=== PATIENT | male | born 1990 | race Hispanic/Latino ===

== ENCOUNTER 2018-01-02 17:07 | Emergency (ER) | payer BC ==
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
--- NOTE | 2018-01-02 18:07 | RAD REPORT ---
EXAM DESCRIPTION: RAD - Lumbar Spine 3 Views - 01/02/2018 5:59 pm CLINICAL HISTORY: LOWER BACK PAIN Radiculopathy COMPARISON: None FINDINGS: Vertebral body heights appear maintained. No compression fracture noted. Mild lower lumbar spondylosis. No spondylolysis or spondylolisthesis. Appendectomy clips. IMPRESSION: Mild lower lumbar spondylosis. No acute finding evident.
[2018-01-02 18:43] VITALS: BP 153/81; TEMP 98.9; O2SAT 97
== END 2018-01-02 18:37 | disposition home or self-care (01) ==
LOC: ER 17:07
DX: S39.012A Strain of muscle, fascia and tendon of lower back, initial encounter (principal); V89.2XXA Person injured in unspecified motor-vehicle accident, traffic, initial encounter; J45.909 Unspecified asthma, uncomplicated
CPT/HCPCS: 72100; 99283

== ENCOUNTER 2019-04-21 04:04 | Emergency (ER) | payer BC ==
[2019-04-21] MEDS ORDERED: METHYLPREDNISOLONE 125 MG INJ ONE (04:31)
[2019-04-21] MEDS ORDERED: LEVALBUTEROL 1.25 MG/3 ML NEB ONE (04:32)
--- NOTE | 2019-04-21 04:58 | ER ---
Nurse's Notes [facility] Name: Theodore Simmons Age: 29 yrs Sex: Male : 1990 Arrival Date: 04/21/2019 Time: 04:06 Bed 5 Private MD: Diagnosis: Asthmatic bronchitis Presentation: 04/21 04:15 Presenting complaint: Patient states: Report cough and congestion since yesterday, ea reports symptoms worsened tonight. Reports productive cough with clear sputum. Pt states he took his ProAir 30 min prior to arrival. Transition of care: patient was not received from another setting of care. Onset of symptoms was April 21, 2019. Risk Assessment: Do you want to hurt yourself or someone else? Patient reports no desire to harm self or others. Initial Sepsis Screen: Does the patient meet any 2 criteria? RR > 20 per min. HR > 90 bpm. Does the patient have a suspected source of infection? No. Patient's initial sepsis screen is negative. Care prior to arrival: None. 04:15 Method Of Arrival: Ambulatory ea 04:15 Acuity: JOE 4 ea Triage Assessment: 04:21 General: Appears uncomfortable, Behavior is appropriate for age. Respiratory: Reports ea shortness of breath Onset: The symptoms/episode began/occurred yesterday, the patient reports symptoms have resolved. Historical: - Allergies: 04:18 No Known Allergies; ea - Home Meds: 04:18 Albuterol Inhl [Active]; ea - PMHx: 04:18 Asthma; ea - PSHx: 04:18 Hernia repair; ea - Immunization history:: Adult Immunizations unknown. - Social history:: Smoking status: Patient/guardian denies using tobacco. - Ebola Screening: : No symptoms or risks identified at this time. Screenin:17 Abuse screen: Denies threats or abuse. Nutritional screening: No deficits noted. ea Tuberculosis screening: No symptoms or risk factors identified. Fall Risk None identified. Assessment: 04:22 General: Appears uncomfortable, Behavior is appropriate for age. Pain: Denies pain. ea Neuro: Level of Consciousness is awake, alert, obeys commands, Oriented to person, place, time, situation. Cardiovascular: Patient's skin is warm and dry. Respiratory: Airway. Respiratory: Airway is patent Respiratory effort is even, unlabored, Respiratory pattern is regular, symmetrical. Derm: Skin is pink, warm \T\ dry. 05:04 Reassessment: Patient and/or family updated on plan of care and expected duration. Pain ea level reassessed. Patient is alert, oriented x 3, equal unlabored respirations, skin warm/dry/pink. Discharge instruction given to patient, verbalized the understanding of instruction. Pt left ED ambulatory accompanied by family. Vital Signs: 04:19 BP 132 / 96; Pulse 127; Resp 18; Temp 99.8; Pulse Ox 96% on R/A; Weight 97.52 kg; ea Height 5 ft. 5 in. (165.10 cm); 05:04 BP 130 / 98; Pulse 110; Resp 18; Pulse Ox 98% on R/A; ea 04:19 Body Mass Index 35.78 (97.52 kg, 165.10 cm) ea ED Course: 04:06 Patient arrived in ED. cl3 04:08 Pérez Marinelli RN is Primary Nurse. rr5 04:09 Jayce Lara MD is Attending Physician. pkl 04:17 Triage completed. ea 04:17 Patient has correct armband on for positive identification. Placed in gown. Bed in low ea position. Call light in reach. 04:18 Arm band placed on right wrist. Patient placed in an exam room, on a stretcher, on ea pulse oximetry. 05:06 No provider procedures requiring assistance completed. Patient did not have IV access ea during this emergency room visit. Administered Medications: 04:34 Drug: SOLU-Medrol 125 mg Route: IM; Site: right deltoid; ea 05:00 Follow up: Response: No adverse reaction ea 04:34 Drug: Xopenex (3) 1.25 mg Route: Inhalation; ea 05:00 Follow up: Response: No adverse reaction ea Outcome: 04:58 Discharge ordered by . pkl 05:06 Discharged to home ambulatory, with family. ea 05:06 Condition: stable 05:06 Discharge instructions given to family, Instructed on discharge instructions, follow up and referral plans. medication usage, Demonstrated understanding of instructions, follow-up care, medications, Prescriptions given X 3. 05:07 Patient left the ED. ea Signatures: Jayce Lara MD MD pkCecelia Walsh RN RN ea Roque, Raymond, RN RN rr5 Shmuel, Charde cl3
--- NOTE | 2019-04-21 04:59 | EDPHYS ---
Physician Documentation [facility] Name: Theodore Simmons Age: 29 yrs Sex: Male : 1990 Arrival Date: 04/21/2019 Time: 04:06 Bed 5 Private MD: ED Physician Jayce Lara HPI: 04/21 04:26 This 29 yrs old Male presents to ER via Ambulatory with complaints of Flu pkl Symptoms, Breathing Difficulty. 04:26 The patient has shortness of breath at rest. Onset: The symptoms/episode began/occurred pkl yesterday. Associated signs and symptoms: Pertinent positives: productive cough. The patient has experienced similar episodes in the past, a few times. Historical: - Allergies: 04:18 No Known Allergies; ea - Home Meds: 04:18 Albuterol Inhl [Active]; ea - PMHx: 04:18 Asthma; ea - PSHx: 04:18 Hernia repair; ea - Immunization history:: Adult Immunizations unknown. - Social history:: Smoking status: Patient/guardian denies using tobacco. - Ebola Screening: : No symptoms or risks identified at this time. ROS: 04:26 Eyes: Negative for injury, pain, redness, and discharge, ENT: Negative for injury, pkl pain, and discharge, Neck: Negative for injury, pain, and swelling, Cardiovascular: Negative for chest pain, palpitations, and edema. 04:26 Respiratory: Positive for cough, with clear sputum, wheezing. 04:26 Abdomen/GI: Negative for abdominal pain, nausea, vomiting, and diarrhea. 04:26 Back: Negative for acute changes. 04:26 : Negative for urinary symptoms. 04:26 MS/extremity: Negative for acute changes. 04:26 Skin: Negative for rash. 04:26 Neuro: Negative for altered mental status. Exam: 04:26 Head/Face: Normocephalic, atraumatic. Eyes: Pupils equal round and reactive to light, pkl extra-ocular motions intact. Lids and lashes normal. Conjunctiva and sclera are non-icteric and not injected. Cornea within normal limits. Periorbital areas with no swelling, redness, or edema. ENT: Nares patent. No nasal discharge, no septal abnormalities noted. Tympanic membranes are normal and external auditory canals are clear. Oropharynx with no redness, swelling, or masses, exudates, or evidence of obstruction, uvula midline. Mucous membranes moist. Neck: Trachea midline, no thyromegaly or masses palpated, and no cervical lymphadenopathy. Supple, full range of motion without nuchal rigidity, or vertebral point tenderness. No Meningismus. Chest/axilla: Normal chest wall appearance and motion. Nontender with no deformity. No lesions are appreciated. Cardiovascular: Regular rate and rhythm with a normal S1 and S2. No gallops, murmurs, or rubs. Normal PMI, no JVD. No pulse deficits. 04:26 Respiratory: the patient does not display signs of respiratory distress, Respirations: normal, Breath sounds: bronchial sounds, that are mild, are scattered, rhonchi, that are mild, are scattered. 04:26 Abdomen/GI: Bowel sounds: normal, Palpation: abdomen is soft and non-tender, in all quadrants. 04:26 Back: Exam negative for acute changes. 04:26 : Exam negative for acute changes. 04:26 Musculoskeletal/extremity: Exam is negative for acute changes. 04:26 Skin: Exam negative for rash. 04:26 Neuro: Orientation: is normal, Mentation: is normal, Cranial nerves: grossly normal, Motor: is normal. Vital Signs: 04:19 BP 132 / 96; Pulse 127; Resp 18; Temp 99.8; Pulse Ox 96% on R/A; Weight 97.52 kg; ea Height 5 ft. 5 in. (165.10 cm); 05:04 BP 130 / 98; Pulse 110; Resp 18; Pulse Ox 98% on R/A; ea 04:19 Body Mass Index 35.78 (97.52 kg, 165.10 cm) ea MDM: 04:09 Patient medically screened. pkl 04:57 Data reviewed: vital signs, nurses notes, lab test result(s). pkl 04/21 04:14 Order name: Flu; Complete Time: 04:54 ea 04/21 04:14 Order name: Strep; Complete Time: 04:54 ea 04/21 04:53 Order name: Throat Culture EDMS Administered Medications: 04:34 Drug: SOLU-Medrol 125 mg Route: IM; Site: right deltoid; ea 05:00 Follow up: Response: No adverse reaction ea 04:34 Drug: Xopenex (3) 1.25 mg Route: Inhalation; ea 05:00 Follow up: Response: No adverse reaction ea Disposition: 04/21/19 04:58 Discharged to Home. Impression: Asthmatic bronchitis. - Condition is Stable. - Prescriptions for Zithromax Z- Jason 250 mg Oral Tablet - take 1 tablet by ORAL route as directed for 5 days Day 1 - take two (2) tablets one time. Day 2, 3, 4 , 5 take one (1) tablet once daily.; 6 tablet. Guaifenesin AC 10- 100 mg/5 mL Oral Liquid - take 10 milliliters by ORAL route every 8 hours As needed; 120 milliliter. - Medication Reconciliation Form, Thank You Letter, Antibiotic Education, Prescription Opioid Use form. - Follow up: Private Physician; When: 2 - 3 days; Reason: Re-evaluation by your physician. - Problem is new. - Symptoms have improved. Signatures: Dispatcher [employer] EDMS Jayce Lara MD MD pkCecelia Walsh RN RN pily Corrections: (The following items were deleted from the chart) 05:07 04:58 04/21/2019 04:58 Discharged to Home. Impression: Asthmatic bronchitis. Condition ea is Stable. Forms are Medication Reconciliation Form, Thank You Letter, Antibiotic Education, Prescription Opioid Use. Follow up: Private Physician; When: 2 - 3 days; Reason: Re-evaluation by your physician. Problem is new. Symptoms have improved. pkl
[2019-04-21 05:11] VITALS: TEMP 99.8
[2019-04-21 05:13] VITALS: BP 130/98; O2SAT 98
== END 2019-04-21 05:07 | disposition home or self-care (01) ==
LOC: ER 04:04
DX: J45.909 Unspecified asthma, uncomplicated (principal)
CPT/HCPCS: 87070; 87081; 87804 ×2; 96372; 99284; J2930

== ENCOUNTER 2019-11-25 05:05 | Emergency (ER) | payer BC ==
--- NOTE | 2019-11-25 05:28 | EDPHYS ---
Physician Documentation [facility] Name: Theodore Simmons Age: 29 yrs Sex: Male : 1990 Arrival Date: 11/25/2019 Time: 05:09 Bed 20 Private MD: ED Physician Aftab Rogers HPI: 11/24 05:23 This 29 yrs old Male presents to ER via Unassigned with complaints of think he rn has covid. 05:23 The patient or guardian reports cough. Onset: The symptoms/episode began/occurred this rn morning. Severity of symptoms: At their worst the symptoms were mild, in the emergency department the symptoms are unchanged. Associated signs and symptoms: The patient has no apparent associated signs or symptoms, Pertinent negatives: chest pain, rhinorrhea, vomiting. The patient has not experienced similar symptoms in the past. Reports subjective fever and chills, + non-productive cough, no known COVID contacts, denies sob. Denies loss of taste and smell, no diarrhea, no hemoptysis, no chest pain.. Historical: - Allergies: 05:31 No Known Allergies; lp1 - Home Meds: 05:31 None [Active]; lp1 - PMHx: 05:31 Asthma; lp1 - Immunization history:: Adult Immunizations up to date. - Family history:: not pertinent. - Hospitalizations: : No recent hospitalization is reported. ROS: 05:23 Constitutional: + fever and chills Eyes: Negative for injury, pain, redness, and rn clinical research, Neck: Negative for injury, pain, and swelling, Cardiovascular: Negative for chest pain, palpitations, and edema, Respiratory: + cough, neg for sob Abdomen/GI: Negative for abdominal pain, nausea, vomiting, diarrhea, and constipation, MS/Extremity: Negative for injury and deformity, Skin: Negative for injury, rash, and discoloration, Neuro: Negative for headache, weakness, numbness, tingling, and seizure. Exam: 05:23 Constitutional: This is a well developed, well nourished patient who is awake, alert, rn and in no acute distress. ENT: No stridor Cardiovascular: Tachycardic, regular Respiratory: Speaking full sentences, unlabored Neuro: Awake and alert, GCS 15. Normal gait. Vital Signs: 05:29 BP 134 / 105; Pulse 106; Resp 18; Temp 98.8(O); Pulse Ox 98% on R/A; Pain 0/10; lp1 MDM: 05:15 Patient medically screened. rn 05:23 Differential Diagnosis: Bronchitis Upper Respiratory Infection Viral Syndrome rn Pneumonia. Differential Diagnosis: Other COVID-19. Data reviewed: vital signs, nurses notes. Refusal of service: The patient/guardian displays adequate decision making capability and despite a detailed discussion of alternatives, benefits, risks, and consequences refuses: all lab tests. ED course: Notified patient that we do testing but will take about 3 days to return results, patient does not want to be tested here if takes that long and wants to leave, will find place with quicker turn around time for testing. Otherwise well appearing and O2 98% on triage vitals. Will dc home since patient changed his mind and does not want to be seen here any further than initial evaluation.. 05:23 Refusal of service: The patient/guardian displays adequate decision making capability rn and despite a detailed discussion of alternatives, benefits, risks, and consequences refuses: all X-rays. Administered Medications: No medications were administered Disposition: 11/25/19 05:27 Discharged to Home. Impression: Cough. - Condition is Stable. - Discharge Instructions: Cough, Adult. - Medication Reconciliation Form, Thank You Letter, Antibiotic Education, Prescription Opioid Use form. - Follow up: Private Physician; When: As needed; Reason: Recheck today's complaints, Re-evaluation by your physician. - Problem is new. - Symptoms are unchanged. Signatures: Aftab Rogers MD MD rn Pena, Laura, RN RN lp1 Corrections: (The following items were deleted from the chart) 05:34 05:27 11/25/2019 05:27 Discharged to Home. Impression: Cough. Condition is Stable. lp1 Forms are Medication Reconciliation Form, Thank You Letter, Antibiotic Education, Prescription Opioid Use. Follow up: Private Physician; When: As needed; Reason: Recheck today's complaints, Re-evaluation by your physician. Problem is new. Symptoms are unchanged. rn
--- NOTE | 2019-11-25 05:35 | ER ---
Nurse's Notes [facility] Name: Theodore Simmons Age: 29 yrs Sex: Male : 1990 Arrival Date: 11/25/2019 Time: 05:09 Bed 20 Private MD: Diagnosis: Cough Presentation: 11/24 05:29 Chief complaint: Patient states: States dry cough and feeling hot since last night; lp1 denies any contact with anyone COVID positive. Coronavirus screen: Client denies travel out of the [place] in the last 14 days. congestion, cough unrelated to allergies. Ebola Screen: No symptoms or risks identified at this time. Initial Sepsis Screen: Does the patient meet any 2 criteria? No. Patient's initial sepsis screen is negative. Does the patient have a suspected source of infection? No. Patient's initial sepsis screen is negative. Risk Assessment: Do you want to hurt yourself or someone else? Patient reports no desire to harm self or others. Onset of symptoms was November 25, 2019. 05:29 Method Of Arrival: Ambulatory lp1 05:29 Acuity: JOE 4 lp1 Historical: - Allergies: 05:31 No Known Allergies; lp1 - Home Meds: 05:31 None [Active]; lp1 - PMHx: 05:31 Asthma; lp1 - Immunization history:: Adult Immunizations up to date. - Family history:: not pertinent. - Hospitalizations: : No recent hospitalization is reported. Screenin:33 Abuse screen: Denies threats or abuse. Denies injuries from another. Nutritional lp1 screening: No deficits noted. Tuberculosis screening: No symptoms or risk factors identified. Fall Risk None identified. Assessment: 05:31 Reassessment: During Dr. Rogers explaining COVID testing, patient states he will seek lp1 another facility with quicker results; Does not want to miss many days of work waiting for results. General: Appears in no apparent distress. Behavior is calm, cooperative. Pain: Denies pain. Neuro: No deficits noted. Cardiovascular: Patient's skin is warm and dry. Respiratory: Reports cough that is dry, Respiratory effort is even, unlabored, Denies shortness of breath. GI: Patient currently denies diarrhea, nausea, vomiting. : No signs and/or symptoms were reported regarding the genitourinary system. EENT: No signs and/or symptoms were reported regarding the EENT system. Derm: Skin is pink, warm \T\ dry. Musculoskeletal: No deficits noted. Vital Signs: 05:29 BP 134 / 105; Pulse 106; Resp 18; Temp 98.8(O); Pulse Ox 98% on R/A; Pain 0/10; lp1 ED Course: 05:09 Patient arrived in ED. es 05:15 Aftab Rogers MD is Attending Physician. rn 05:28 Jocelyn Chappell, YAYA is Primary Nurse. lp1 05:31 Triage completed. lp1 05:31 Arm band placed on left wrist. lp1 05:33 Patient has correct armband on for positive identification. lp1 05:33 No provider procedures requiring assistance completed. Patient did not have IV access lp1 during this emergency room visit. Administered Medications: No medications were administered Outcome: 05:27 Discharge ordered by . rn 05:34 Discharged to home ambulatory. lp1 05:34 Condition: stable 05:34 Discharge instructions given to patient, Instructed on discharge instructions, follow up and referral plans. Demonstrated understanding of instructions, follow-up care. 05:34 Patient left the ED. lp1 Signatures: Romana Stubbs Roman, MD MD rn Pena, Laura, RN RN lp1
[2019-11-25 05:40] VITALS: BP 134/105; TEMP 98.8; O2SAT 98
== END 2019-11-25 05:34 | disposition home or self-care (01) ==
LOC: ER 05:05
DX: R05 Cough (principal)
CPT/HCPCS: 99281

== ENCOUNTER 2020-03-09 10:08 | Day surgery (SDC) | payer BC ==
--- OUTSIDE RECORDS SUMMARY | 2020-03-09 10:44 | XMS REPORT | Continuity of Care Document ---
:1990 Author Organization [facility] t Address [address] [place] [address] Care Team Providers Name Role Phone Lab, [facility] Fam Pob I Attending Clinician Unavailable Nina Hanna Attending Clinician Problems This patient has no known problems. Allergies, Adverse Reactions, Alerts This patient has no known allergies or adverse reactions. Medications This patient has no known medications. Procedures This patient has no known procedures. Encounters Start End Encounter Admission Attending Care Care Encounter Source Date/Time Date/Time Type Type Clinicians Facility Department ID 2019-12-22 2019-12-22 Laboratory Lab, [facility] [id number] 12:36:31 12:56:31 Only Fam Pob I Health [id number] [place] [id number] [facility] [phone] nal [address] 2019-12-05 2019-12-06 Emergency Paulie Martinez [facility] [id number] 22:39:00 00:46:00 Nina Ravi [id number] [place] [id number] [place] [id number] [id number] 2019-11-25 2019-11-25 Career Development Specialist Lab, [facility] [id number] 17:07:43 17:27:43 Visit [facility] [id number] [place] [id number] [facility] [phone] nal [address] Results This patient has no known results.
--- OUTSIDE RECORDS SUMMARY | 2020-03-09 10:44 | XMS REPORT | Summary of Care ---
:1990 Author Organization [facility] Address [address] [place] [address] Care Team Providers Name Role Phone Pcp, Patient Does Not Have A Primary Care Provider +[id number] 0-0000 Reason for Visit Reason Comments Exposure Encounter Details Date Type Department Care Team Description 12/22/2019 Laboratory Only [facility] Family Latasha Burciaga, FORREST [address] [place] [address] Suspected 2019 [facility], Adc Fam Pob I Coronavirus [address] [place] [address] Infection ([address] Dx) [place] [address] Allergies No Known Allergiesdocumented as of this encounter (statuses as of 12/22/2019) Medications Medication Sig Dispensed Refills Start Date End Date Status albuterol 2.5 mg /3 mL Inhale 3 mL every 1 Box 0 0 Active (0.083 %) nebulizer 4 (four) hours as solutionIndications: needed for COVID-19, Asthma with Wheezing or acute exacerbation, Shortness of unspecified asthma Breath. severity, unspecified whether persistent albuterol 90 Inhale 2 Puffs 8.5 g 0 12/06/2019 A ctive mcg/actuation every 4 (four) inhalerIndications: hours as needed COVID-19, Asthma with for Wheezing or acute exacerbation, Shortness of unspecified asthma Breath. severity, unspecified whether persistent predniSONE 20 mg 1 PO BID x 4 days 8 tablet 0 12/06/2019 Active tabletIndications: COVID-19, Asthma with acute exacerbation, unspecified asthma severity, unspecified whether persistent benzonatate 200 mg Take 1 capsule by 20 capsule 0 12/06/2019 Active capsuleIndications: mouth 3 (three) COVID-19, Asthma with times daily as acute exacerbation, needed for Cough unspecified asthma for up to 20 severity, unspecified doses. whether persistent ondansetron (ZOFRAN Take 1 tablet by 10 tablet 0 12/06/2019 Active ODT) 4 mg mouth every 8 disintegrating (eight) hours as tabletIndications: needed for Nausea COVID-19, Asthma with and Vomiting acute exacerbation, (N/V). unspecified asthma severity, unspecified whether persistent naproxen (NAPROSYN) Take 1 tablet by 30 tablet 0 12/06/2019 Active 500 mg mouth 2 (two) tabletIndications: times daily with COVID-19, Asthma with meals. acute exacerbation, unspecified asthma severity, unspecified whether persistent documented as of this encounter (statuses as of 12/22/2019) Active Problems Problem Noted Date Status post left inguinal herniorrhaphy 07/09/2012 documented as of this encounter (statuses as of 12/22/2019) Social History Tobacco Use Types Packs/Day Years Used Date Never Smoker Alcohol Use Drinks/Week oz/Week Comments Not Asked occas. 2 x a mon th Sex Assigned at Date Recorded Not on file COVID-19 Exposure Response Date Recorded In the last month, have you been in contact with Yes 12/05/2019 10:31 PM CDT someone who was confirmed or suspected to have Coronavirus / COVID-19? documented as of this encounter Last Filed Vital Signs Not on filedocumented in this encounter Nursing Notes Ramila Capps MA - 12/22/2019 1:20 PM Barry Simmons is a 29 year old male here for COVID Screening with a Nasopharyngeal Swab All droplet and contact precautions taken with appropriate PPE worn while interacting with patient. ? Goggles ? N95 Mask ? Gloves ? Gown Patient swabbed , both Nostrils. Patient educated on plan of care for visit, swabbing technique, risks and benefits of test and length of time to receive results. Verbal consent obtained to perform test. CDC Fact Sheet for Patients nCoV Diagnostic Panel dated 07/05/2019 and Factsheet What to Do if Sick with COVID 19 06/15/19 provided. Patient swabbed per appropriate nasopharyngeal technique, and patient tolerated well. Patient was discharged from the testing clinic in stable condition. Ramila Capps MA 12/22/2019 1:05 PM documented in this encounter Plan of Treatment Name Type Priority Associated Diagnoses Order S chedule COVID-19 (PCR MOLECULAR LAB Routine Suspected 2019 No mahendra Ordered: 12/22/2019 TESTING) Coronavirus Infection Health Maintenance Due Date Last Done Comments VARICELLA VACCINES (1 of 2 - 2-dose childhood series) 1990 PNEUMOCOCCAL 0-64 YEARS COMBINED SERIES (1 of 1 - 1995 PPSV23) Depression Screening 2001 DTaP,Tdap,and Td Vaccines (1 - Tdap) 01/11/2008 INFLUENZA VACCINE (#1) 2019 documented as of this encounter Implants Implanted Type Area Supervisor Landscape Device Shelf Model / Identifier Expiration Serial / Date Lot Mesh, Ethicon Prolene Ultrapro 3in X 6in #[id number] - Sumr3 MESH Lef t: Ethicon 10/19/2016 UMR3 / Implanted: Qty: 1 on 06/19/[address] se, DO at [facility] [employer] UMR3 / [id number] documented as of this encounter Results Not on filedocumented in this encounter Visit Diagnoses Diagnosis Suspected 2018 Novel Coronavirus Infecti on - Primary documented in this encounter Additional Health Concerns Infection Onset Date Last Indicated Resolved Time COVID-19 Confirmed 11/25/2019 11/25/2019 documented as of this encounter Insurance Payer Benefit Plan Subscriber ID Effective Dates Phone Address Type / Group BCBS [facility] [id number] 2017-Marcial [phone] [address] PPO/POS [place] [id number] [place] [address] documented as of this encounter Advance Directives Type Date Recorded Patient Sander And Polisher Explanati on Advance Directives and Living Will Power of Rn Manager
[2020-03-09] MEDS ORDERED: Ringers Lactate 1,000 ML IV ONE ×2 (10:56→14:56)
[2020-03-09] MEDS ORDERED: CEFAZOLIN/SWI 1gm 1 GM/10 ML SYR ONE (10:56)
[2020-03-09] MEDS ORDERED: propofoL 200 MG/20 ML VIAL IV ONE (11:55)
[2020-03-09] MEDS ORDERED: FENTANYL CITR 100 MCG/2 ML ONE (11:55)
[2020-03-09] MEDS ORDERED: dexAMETHasone 10 MG/ML VIAL ONE (11:55)
[2020-03-09] MEDS ORDERED: MIDAZOLAM HCL 2 MG/2 ML INJ ONE (11:56)
[2020-03-09] MEDS ORDERED: LIDOCAINE 2% MPF 5 ML VIAL ONE (11:56)
[2020-03-09] MEDS ORDERED: BUPIVACA 0.5%/EPI 0.0005%/PF 10 ML VIAL ONE (12:07)
[2020-03-09] MEDS ORDERED: BUPIVACA 0.5%/EPI 0.0005%/PF 30 ML VIAL ONE (12:07)
[2020-03-09] MEDS ORDERED: ROCURONIUM 50 MG/5 ML VIAL IV ONE (14:20)
[2020-03-09] MEDS ORDERED: GLYCOPYRROLATE 0.2 MG/ML SYR ONE (15:17)
[2020-03-09] MEDS ORDERED: KETOROLAC 30 MG/ML INJ ONE (15:18)
[2020-03-09] MEDS ORDERED: NEOSTIGMINE 1 MG/ML -5 ML ONE (15:18)
--- NOTE | 2020-03-09 15:26 | P.OP ---
Preoperative diagnosis: LEFT Inguinal Hernia Postoperative diagnosis: LEFT Inguinal Hernia Primary procedure: Open LEFT inguinal hernia repair with mesh Anesthesia: GETA + Local Estimated blood loss: <15cc Specimen: Hernia Sack and contents Findings: Large indirect inguinal hernia, omentum entrapped Complications: None Implants: Large Bard Perfix Hernia Plug and Patch Hernia Repair System Transferred to: Recovery Room () Condition: Good
[2020-03-09] MEDS ORDERED: MORPHINE 10 MG/ML VIAL ONE (15:30)
[2020-03-09] MEDS: MORPHINE 4 MG/ML SYR ONE ×2 (16:14→16:20)
[2020-03-09] MEDS ORDERED: HYDROCODONE/APAP 5/325 MG TAB PO ONE ×2 (17:10→17:53)
--- NOTE | 2020-03-09 17:19 | OP ---
Date of Procedure: 03/09/2020 Surgeon: Ford Reeves MD, Preoperative Diagnosis: Left inguinal hernia. Postoperative Diagnosis: Left inguinal hernia. Procedure: Open left inguinal hernia repair with mesh. Anesthesia: General endotracheal plus local with 0.5% Marcaine with epinephrine. Estimated Blood Loss: Less than 15 cc. Specimens: Hernia sac and contents. Findings: 1.Large indirect inguinal hernia, omentum entrapped within. 2.Obliterated external oblique aponeurosis. Implants: Large Bard PerFix hernia plug and patch hernia repair system. Disposition: Transferred to recovery room in good condition. Procedure In Detail: After informed consent was obtained, the patient was brought to the operating r oom, prepped in the usual fashion. After adequate anesthesia was achieved, a lower inguinal incision was made through subcutaneous tissues using a 15 blade down to subcutaneous tissues and to Camper fa t and Beata fascia, which were with electrocautery down to expose the external oblique apo neurosis, which was essentially within alveolar and obliterated. Fibers were still identified at thi s point. This was opened sharply with Metzenbaum scissors protecting the ilioinguinal nerve. A very large hernia was appreciated. The patient had approximately the size of a cantaloupe amount of omen miguel in the scrotum. This hernia sac was encircled and opened isolating the spermatic cord and struct ures with Nila drain at this point on the medial aspect. After the spermatic cord structures were from the hernia sac, dissection continued circumferentially around the hernia sac and ulti mately was opened to allow for reduction of the omentum back into the preperitoneal space; however, a ppeared somewhat ischemic and scarred as such I opted to remove this portion of the omentum using a L igaSure device. LigaSure was used to transect this portion of the omentum, which was the hernia sac contents and this was sent off for pathologic examination. At this point, the remainder of the herni a sac was dissected free. Indirect inguinal hernia was appreciated and the preperitoneal space was p alpated and found to be free of any scar tissue or intraabdominal contents. At this point, the herni a sac was ligated using electrocautery and sent off for pathologic examination. I then brought in a large Bard PerFix plug hernia repair system, hydrated appropriately and using 0 PDS sutures, I parach uted a large hernia plug in the preperitoneal space securing this to the mesh and flattening out the mesh on the preperitoneal space. At this point, I closed the defect with the same said 0 PDS suture with good approximation of the tissues. I then irrigated the area copiously and suctioned out until completely dry. At this point, I brought in the large Bard patch system, sized appropriately and tri mmed the edges and secured it to the pubic tubercle on the medial aspect after reducing the testicle in the normal anatomic position. I then secured the patch to the undersurface of the inguinal ligame nt and the internal oblique musculature circumferentially around and reconstituted the deep inguinal ring with the same said 0 PDS suture on the medial and lateral shelving edges. After this was perfor med, the area was copiously irrigated once again and dried. I then closed the Camper fat, Beata fas ayana, and remainder of the external oblique aponeurosis en bloc with a 3-0 Vicryl suture in a running fashion. I irrigated the area once again and closed the skin with 4-0 Monocryl in a running fashion. Dermabond was placed over top. The patient tolerated the procedure well without evidence of compli cation, transferred to PACU in good condition. All counts were correct at the end of the case. MAICOL/VIRGIL Voice ID: [id number] Report ID: [id number]
[2020-03-09] MEDS ORDERED: HYDROCODONE/APAP 5/325 MG TAB ONE ×2 (17:21→18:05)
[2020-03-09 17:22] VITALS: TEMP 96.9
[2020-03-09] MEDS ORDERED: ONDANSETRON 4 MG/2 ML VIAL IV ONE (17:58)
[2020-03-09] MEDS ORDERED: ONDANSETRON 4 MG/2 ML VIAL ONE (18:09)
[2020-03-09 18:29] VITALS: BP 126/69; O2SAT 100
== END 2020-03-09 18:27 | disposition home or self-care (01) ==
LOC: OR 10:08
PROVIDERS: ATTEND Surgery
PROC: 0YU60JZ Supplement Left Inguinal Region with Synthetic Substitute, Open Approach (ICD-10-PCS; principal; 2020-03-09 11:45)
DX: K40.90 Unilateral inguinal hernia, without obstruction or gangrene, not specified as recurrent (principal); Z20.828 Contact with and (suspected) exposure to other viral communicable diseases; J45.909 Unspecified asthma, uncomplicated; R06.83 Snoring
CPT/HCPCS: 88302; J0690; J1100; J2250; J2405; J2704; J2710; J3010; J7120; U0002

== ENCOUNTER 2022-02-27 16:23 | Emergency (ER) | payer BC ==
--- OUTSIDE RECORDS SUMMARY | 2022-02-27 16:30 | XMS REPORT | Continuity of Care Document ---
:1990 Author Organization [facility] t Address [address] [place] [address] Care Team Providers Name Role Phone CORIE MONTANO Attending Clinician Unavailable Lab, [facility] [place] I Attending Clinician Unavailable Paulie Hanna Attending Clinician Payers Payer Name Policy Type Policy Number Effective Date Expiration Date S [facility] [id number] 2017 00:00:00 Problems This patient has no known problems. Allergies, Adverse Reactions, Alerts Allergy Allergy Status Severity Reaction(s) Onset Inactive Treating Comm ents Source Name Type Date Date Clinician NO KNOWN Drug Active [facility] Medications This patient has no known medications. Procedures This patient has no known procedures. Encounters Start End Encounter Admission Attending Care Care Encounter Source Date/Time Date/Time Type Type Clinicians Facility Department ID 2021-02-17 Emergency [facility] [id number] [facility] 12:41:22 [facility] 2019-12-22 2019-12-22 Outpatient R DUSTY [facility] [id number] Univers 13:20:00 13:20:00 CORIE [facility] 2019-12-22 2019-12-22 Laboratory Lab, [facility] [id number] 12:36:31 12:56:31 Only Fam Pob I Health [id number] [place] [id number] [facility] [phone] nal [address] 2019-12-05 2019-12-06 Emergency Paulie Martinez [facility] [id number] 22:39:00 00:46:00 Nina [place] [id number] [place] [id number] [place] [id number] 2019-11-25 2019-11-25 Radiological Technician Lab, [facility] [id number] 17:07:43 17:27:43 Visit Fam P[facility] I Health [id number] [place] [id number] [facility] [phone] nal [facility] [address] 2019-11-25 2019-11-25 Outpatient Michelle MONTANO [facility] [id number] Univers 16:40:00 16:40:00 CORIE snow [facility] 2019-11-25 2019-11-25 [facility] [id number] Univers 08:40:00 08:40:00 CORIE maryse [facility] 2019-11-25 2019-11-25 [facility] [id number] [facility] 08:40:00 [facility]40[facility] Results This patient has no known results.
[2022-02-27] MEDS ORDERED: predniSONE 20 MG TAB ONE (16:52)
[2022-02-27] MEDS ORDERED: IBUPROFEN 400 MG TAB ONE (16:52)
[2022-02-27] MEDS ORDERED: IPRATROPIUM BROM 0.5MG/2.5ML ONE (16:53)
[2022-02-27] MEDS ORDERED: ALBUTEROL 2.5 MG/3 ML NEB SOL ONE (16:53)
--- NOTE | 2022-02-27 18:02 | RAD REPORT ---
EXAM DESCRIPTION: RAD - Chest Single View - 02/27/2022 5:40 pm CLINICAL HISTORY: COUGH Chest pain. COMPARISON: Chest Pa And Lat (2 Views) dated 04/30/2019; Chest Pa And Lat (2 Views) dated 11/13/2015; C HEST PA AND LAT 2 VIEW dated 04/29/2012; CHEST PA AND LAT 2 VIEW dated 08/14/2009 FINDINGS: Portable technique limits examination quality. The lungs are grossly clear. The heart is normal in size. No displaced fractures. IMPRESSION: No acute intrathoracic process suspected.
[2022-02-27 18:11] LABS: SARS-COV-2 RT PCR NEGATIVE (NEGATIVE)
--- NOTE | 2022-02-27 18:21 | ER ---
Nurse's Notes [facility] Name: Theodore Simmons Age: 32 yrs Sex: Male : 1990 Arrival Date: 02/27/2022 Time: 16:27 Bed 12 Private MD: Eagle Salinas Diagnosis: Influenza due to identified novel influenza A virus Presentation: 02/27 16:36 Chief complaint: Patient states: sore throat and cough, fever and chills and fatigue 5 since 0400. Coronavirus screen: Vaccine status: Patient reports being unvaccinated. Client denies travel out of the [place] in the last 14 days. Ebola Screen: Patient negative for fever greater than or equal to 101.5 degrees Fahrenheit, and additional compatible Ebola Virus Disease symptoms Patient denies exposure to infectious person. Patient denies travel to an Ebola-affected area in the 21 days before illness onset. Initial Sepsis Screen: Does the patient meet any 2 criteria? No. Patient's initial sepsis screen is negative. Does the patient have a suspected source of infection? No. Patient's initial sepsis screen is negative. Risk Assessment: Do you want to hurt yourself or someone else? Patient reports no desire to harm self or others. 16:36 Method Of Arrival: Ambulatory [facility] 16:36 Acuity: JOE 3 5 Triage Assessment: 16:38 General: Appears uncomfortable, obese, well groomed, well developed, Behavior is calm, jh5 cooperative, appropriate for age. Pain: Complains of pain in throat. Historical: - PMHx: 16:38 Asthma; [facility] - Immunization history:: Adult Immunizations up to date. - Social history:: Smoking status: Patient denies any tobacco usage or history of. Vital Signs: 16:36 BP 125 / 79; Pulse 138; Resp 20; Temp 100.6; Pulse Ox 100% ; Weight 97.98 kg; Height 5 5 ft. 5 in. (165.10 cm); 16:36 Body Mass Index 35.94 (97.98 kg, 165.10 cm) [facility] ED Course: 16:27 Patient arrived in ED. rg4 16:27 Eagle Salinas MD is Private Physician. rg4 16:27 [facility]C [facility] kb 16:27 Aftab Rogers MD is Attending Physician. kb 16:38 Triage completed. jh5 16:38 Arm band placed on right wrist. jh5 16:44 Allison Avery, RN is Primary Nurse. iw 17:43 Chest Single View XRAY In Process Unspecified. EDMS Administered Medications: 16:56 Drug: Albuterol 2.5 mg Route: Inhalation; iw 16:56 Drug: AtroVENT (ipratropium) Aerosol 0.5 mg Route: Inhalation; iw 16:56 Drug: Ibuprofen 800 mg Route: PO; iw 17:30 Follow up: Response: No adverse reaction iw 16:56 Drug: predniSONE 40 mg Route: PO; iw 17:30 Follow up: Response: No adverse reaction iw Outcome: 18:20 Discharge ordered by . kb 18:35 Patient left the ED. iw Signatures: Dispatcher [employer] EDMS Joann Vargas, MUSIC AGENT-C MUSIC AGENT-Allison Wilkerson, RN YAYA Priscilla Drosey 4 Laurie Sam RN RN 5
--- NOTE | 2022-02-27 18:21 | EDPHYS ---
Physician Documentation [facility] Name: Theodore Simmons Age: 32 yrs Sex: Male : 1990 Arrival Date: 02/27/2022 Time: 16:27 Bed 12 Private MD: Eagle Salinas ED Physician Aftab Rogers HPI: 02/27 18:47 This 32 yrs old Male presents to ER via Ambulatory with complaints of Cough, kb Sore Throat. 18:47 The patient or guardian reports cough, that is intermittent, described as moderate, kb with no sputum, flu symptoms, low-grade fever, myalgias. Onset: The symptoms/episode began/occurred this morning. Severity of symptoms: At their worst the symptoms were moderate, in the emergency department the symptoms are unchanged. Modifying factors: The symptoms are alleviated by nothing, the symptoms are aggravated by nothing. Associated signs and symptoms: Pertinent positives: fever, rhinorrhea, sore throat. The patient has not experienced similar symptoms in the past. The patient has not recently seen a physician. Pt reports cough, fever, chills, sore throat, and malaise started this morning. Historical: - PMHx: 16:38 Asthma; jh5 - Immunization history:: Adult Immunizations up to date. - Social history:: Smoking status: Patient denies any tobacco usage or history of. ROS: 18:45 Cardiovascular: Negative for chest pain, palpitations, and edema. kb 18:45 Constitutional: Positive for chills, fatigue, fever, malaise. 18:45 ENT: Positive for sinus congestion, sore throat. 18:45 Respiratory: Positive for cough. 18:45 All other systems are negative. Exam: 18:45 Constitutional: This is a well developed, well nourished patient who is awake, alert, kb and in no acute distress. Head/Face: Normocephalic, atraumatic. ENT: Moist Mucous membranes Cardiovascular: Regular rate and rhythm with a normal S1 and S2. No gallops, murmurs, or rubs. No pulse deficits. Respiratory: Respirations even and unlabored. No increased work of breathing. Talking in full sentences Abdomen/GI: Soft, non-tender. No distention Skin: Warm, dry with normal turgor. Normal color. MS/ Extremity: Pulses equal, no cyanosis. Neurovascular intact. Full, normal range of motion. Neuro: Awake and alert, GCS 15, oriented to person, place, time, and situation. Moves all extremities. Normal gait. Psych: Awake, alert, with orientation to person, place and time. Behavior, mood, and affect are within normal limits. Vital Signs: 16:36 BP 125 / 79; Pulse 138; Resp 20; Temp 100.6; Pulse Ox 100% ; Weight 97.98 kg; Height 5 jh5 ft. 5 in. (165.10 cm); 16:36 Body Mass Index 35.94 (97.98 kg, 165.10 cm) jh5 MDM: 16:41 Patient medically screened. kb 18:46 Data reviewed: vital signs, nurses notes. Data interpreted: Pulse oximetry: on room air kb is 100 %. Interpretation: normal. Counseling: I had a detailed discussion with the patient and/or guardian regarding: the historical points, exam findings, and any diagnostic results supporting the discharge/admit diagnosis, lab results, the need for outpatient follow up, a family practitioner, to return to the emergency department if symptoms worsen or persist or if there are any questions or concerns that arise at home. 02/27 16:37 Order name: COVID-19/FLU A+B/RSV (Document "Date of Onset" if Symptomatic); Complete kb Time: 18:17 02/27 16:37 Order name: Strep; Complete Time: 17:40 kb 02/27 16:41 Order name: Chest Single View XRAY; Complete Time: 18:05 kb 02/27 17:50 Order name: Throat Culture EDMS Administered Medications: 16:56 Drug: Albuterol 2.5 mg Route: Inhalation; iw 16:56 Drug: AtroVENT (ipratropium) Aerosol 0.5 mg Route: Inhalation; iw 16:56 Drug: Ibuprofen 800 mg Route: PO; iw 17:30 Follow up: Response: No adverse reaction iw 16:56 Drug: predniSONE 40 mg Route: PO; iw 17:30 Follow up: Response: No adverse reaction iw Disposition Summary: 02/27/22 18:20 Discharge Ordered Location: Home kb Condition: Stable kb Diagnosis - Influenza due to identified novel influenza A virus kb Followup: kb - With: Emergency Department - When: As needed - Reason: Worsening of condition Followup: kb - With: Private Physician - When: 2 - 3 days - Reason: Recheck today's complaints, Continuance of care, Re-evaluation by your physician Discharge Instructions: - Discharge Summary Sheet kb - Influenza, Adult, [id number] kb Forms: - Medication Reconciliation Form kb - Thank You Letter kb - Work release form kb - Antibiotic Education kb - Prescription Opioid Use kb Prescriptions: - Tamiflu 75 mg Oral Capsule - take 1 tablet by ORAL route every 12 hours for 5 days; 10 tablet; Refills: 0, kb Product Selection Permitted Addendum: 03/01/2022 07:14 Co-signature as Attending Physician, Aftab Rogers MD. r n Signatures: Dispatcher [employer] EDJoann Betancourt, FORREST-C GAME WARDEN-Allison Wilkerson, RN Aftab Burton MD MD rn Rees, Jessica, RN RN jh5
[2022-02-27 18:43] VITALS: BP 125/79; TEMP 100.6; O2SAT 100
== END 2022-02-27 18:35 | disposition home or self-care (01) ==
LOC: ER 16:23
DX: J09.X2 Influenza due to identified novel influenza A virus with other respiratory manifestations (principal); Z20.822 Contact with and (suspected) exposure to COVID-19
CPT/HCPCS: 87070; 87081; 0241U; 71045; 99284; J7512

== ENCOUNTER 2022-12-30 18:06 | Emergency (ER) | payer BC ==
--- OUTSIDE RECORDS SUMMARY | 2022-12-30 18:09 | XMS REPORT | Continuity of Care Document ---
:1990 Author Organization [facility] t Address [address] [place] [address] Care Team Providers Name Role Phone CORIE MONTANO Attending Clinician Unavailable Lab, Adc Gage [place] I Attending Clinician Unavailable Paulie Hanna Attending Clinician Payers Payer Name Policy Type Policy Number Effective Date Expiration Date S [facility] [id number] 2017 00:00:00 Problems This patient has no known problems. Allergies, Adverse Reactions, Alerts Allergy Allergy Status Severity Reaction(s) Onset Inactive Treating Comm ents Source Name Type Date Date Clinician NO KNOWN Drug Active [facility] Medications This patient has no known medications. Procedures This patient has no known procedures. Encounters Start End Encounter Admission Attending Care Care Encounter Source Date/Time Date/Time Type Type Clinicians Facility Department ID 2021-02-17 Emergency [facility] [id number] Univers 12:41:22 [facility] 2019-12-22 2019-12-22 Outpatient R DUSTY [facility] [id number] Univers 13:20:00 13:20:00 CORIE [facility] 2019-12-22 2019-12-22 Laboratory Lab, [facility] [id number] 12:36:31 12:56:31 Only Fam Pob I Health [id number] [place] [id number] Professio [phone] nal [address] 2019-12-05 2019-12-06 Emergency Paulie Martinez [facility] [id number] 22:39:00 00:46:00 Nina [place] [id number] [place] [id number] [place] [id number] [id number] 2019-11-25 2019-11-25 Vehicle Refinisher Lab, [facility] [id number] 17:07:43 17:27:43 Visit Fam Pob I Health [id number] [place] [id number] Professio [phone] nal [facility] [address] 2019-11-25 2019-11-25 Outpatient Michelle MONTANO [facility] [id number] Univers 16:40:00 16:40:00 CORIE snow [facility] 2019-11-25 2019-11-25 [facility] [id number] Univers 08:40:00 08:40:00 CORIE maryse [facility] 2019-11-25 2019-11-25 [facility] [id number] Univers 08:40:00 [facility]40[facility] Results This patient has no known results.
[2022-12-30 19:30] LABS: Absolute Lymphocytes (CBC) 2.3 K/uL (0.7-4.9); Hematocrit 45.2 % (39.6-49.0); Lymphocytes % 16.6 % (15.3-44.8); MCV 81.9 fL (80-100); MPV 8.4 fL (7.6-11.3); Platelets 269 thou/uL (152-406); RBC Red Blood Cell Count 5.52 M/uL (4.33-5.43)
[2022-12-30 19:39] LABS: SARS-CoV-2 Antigen Rapid Res Negative (Negative)
--- NOTE | 2022-12-30 19:54 | RAD REPORT ---
EXAM DESCRIPTION: JOSHChest Single View12/30/2022 7:04 pm CLINICAL HISTORY: CHEST PAIN COMPARISON: Chest Single View dated 02/27/2022; Chest Pa And Lat (2 Views) dated 04/30/2019; Chest Pa A nd Lat (2 Views) dated 11/13/2015; CHEST PA AND LAT 2 VIEW dated 04/29/2012 TECHNIQUE: Portable AP view of the chest. FINDINGS: The lungs are clear. No pneumothorax or effusion. The cardiomediastinal contours are unre markable. IMPRESSION: No acute cardiopulmonary process.
[2022-12-30 19:58] LABS: Albumin 3.7 g/dL (3.4-5.0); Bilirubin Direct 0.3 mg/dL (0-0.2); Bilirubin Indirect, Calculated 0.2 mg/dL (0.2-0.8); Bilirubin Total 0.5 mg/dL (0.2-1.0); Magnesium 2.1 mg/dL (1.6-2.4); Potassium 3.6 mEq/L (3.5-5.1); Protein, Total 7.8 g/dL (6.4-8.2); Thyroid Stimulating Hormone 1.31 uIU/mL (0.358-3.740); Troponin High Sensitivity 3.9 pg/mL (<58.9)
--- NOTE | 2022-12-30 20:24 | ER ---
Nurse's Notes [facility] Name: Theodore Simmons Age: 32 yrs Sex: Male : 1990 Arrival Date: 12/30/2022 Time: 18:06 Bed 14 Private MD: Diagnosis: Chest pain, unspecified;Dizziness and giddiness Presentation: 12/30 18:10 Chief complaint: Patient states: Chest pain, onset about an hour ago, ranges in nj1 intensity. [place] dizzy when the pain first came, no dizziness as of now. Denies nausea. Coronavirus screen: Vaccine status: Patient reports receiving the 2nd dose of the covid vaccine. Ebola Screen: Patient denies travel to an Ebola-affected area in the 21 days before illness onset. Initial Sepsis Screen: Does the patient meet any 2 criteria? No. Patient's initial sepsis screen is negative. Does the patient have a suspected source of infection? No. Patient's initial sepsis screen is negative. Risk Assessment: Do you want to hurt yourself or someone else? Patient reports no desire to harm self or others. Onset of symptoms was December 30, 2022 at 17:00. 18:10 Method Of Arrival: Ambulatory [facility] 18:10 Acuity: JOE 3 nj1 Historical: - Allergies: 18:12 No Known Allergies; nj1 - PMHx: 18:12 Asthma; Diabetes mellitus; nj1 - Immunization history:: Client reports receiving the 2nd dose of the Covid vaccine. - Social history:: Smoking status: Patient denies any tobacco usage or history of. Screenin:25 [facility] ED Fall Risk Assessment (Adult) History of falling in the last 3 months, lg3 including since admission No falls in past 3 months (0 pts). Abuse screen: Denies threats or abuse. Denies injuries from another. Nutritional screening: No deficits noted. Tuberculosis screening: No symptoms or risk factors identified. Assessment: 19:14 Reassessment: Patient appears in no apparent distress at this time. [facility] 19:25 General: Appears in no apparent distress. comfortable, Behavior is calm, cooperative. lg3 Pain: Complains of pain in chest Pain does not radiate. Pain currently is 4 out of 10 on a pain scale. Pain began suddenly, Is intermittent. Neuro: No deficits noted. August Agitation-Sedation Scale (RASS): 0 - Alert and Calm Level of Consciousness is awake, alert, obeys commands, Oriented to person, place, time, situation. Cardiovascular: Reports chest pain, Capillary refill < 3 seconds Clubbing of nail beds is absent JVD is absent Patient's skin is warm and dry. Respiratory: No deficits noted. Airway is patent Respiratory effort is even, unlabored, Respiratory pattern is regular, symmetrical. GI: No deficits noted. No signs and/or symptoms were reported involving the gastrointestinal system. : No deficits noted. No signs and/or symptoms were reported regarding the genitourinary system. EENT: No deficits noted. No signs and/or symptoms were reported regarding the EENT system. Derm: No deficits noted. No signs and/or symptoms reported regarding the dermatologic system. Skin is intact, is healthy with good turgor, Skin is dry, Skin is normal, Skin temperature is warm. Musculoskeletal: No deficits noted. No signs and/or symptoms reported regarding the musculoskeletal system. Circulation, motion, and sensation intact. Range of motion: intact in all extremities. 21:08 Reassessment: Patient appears in no apparent distress at this time. No changes from lg3 previously documented assessment. Patient and/or family updated on plan of care and expected duration. Pain level reassessed. Patient is alert, oriented x 3, equal unlabored respirations, skin warm/dry/pink. Patient states symptoms have improved. Vital Signs: 18:10 BP 132 / 93; Pulse 85; Resp 18; Temp 98.3(O); Pulse Ox 100% on R/A; Weight 79.83 kg; nj1 Height 5 ft. 5 in. ; Pain 9/10; 19:25 BP 134 / 85; Pulse 86; Resp 15 S; Pulse Ox 99% on R/A; lg3 21:08 BP 127 / 84; Pulse 88; Resp 16 S; Pulse Ox 99% on R/A; lg3 18:10 Body Mass Index 29.29 (79.83 kg, 165.1 cm) nj1 18:10 Pain Scale: Adult [facility] ED Course: 18:08 Patient arrived in ED. rg4 18:11 Sowmya Cornelius PA-C is PSYCHIATRICP. sb4 18:11 Aftab Rogres MD is Attending Physician. sb4 18:12 Triage completed. nj1 18:12 Arm band placed on right wrist. nj1 18:18 EKG completed in triage. Results shown to MD. nj1 19:06 XRAY Chest (1 view) In Process Unspecified. EDMS 19:22 Inserted saline lock: 20 gauge in right antecubital area, using aseptic technique. rv1 Blood collected. 19:23 Flu Sent. rv1 19:23 SARS RAPID Sent. rv1 19:23 TSH Sent. rv1 19:23 Basic Metabolic Panel Sent. rv1 19:23 CBC with Diff Sent. rv1 19:23 D-Dimer Sent. rv1 19:23 LFT's Sent. rv1 19:23 Magnesium Sent. rv1 19:23 Troponin HS Sent. rv1 19:24 Jenny Arredondo, RN is Primary Nurse. lg3 19:25 Patient has correct armband on for positive identification. Placed in gown. Bed in low lg3 position. Call light in reach. Side rails up X 1. Client placed on continuous cardiac and pulse oximetry monitoring. NIBP monitoring applied. zipper lining folder on. Door closed. Noise minimized. Warm blanket given. 19:25 Patient maintains SpO2 saturation greater than 95% on room air. lg3 21:13 No provider procedures requiring assistance completed. IV discontinued, intact, lg3 bleeding controlled, No redness/swelling at site. Pressure dressing applied. Administered Medications: No medications were administered Medication: 21:14 VIS not applicable for this client. lg3 Outcome: 20:23 Discharge ordered by MD. sb4 21:13 Discharged to home ambulatory. lg3 21:13 Condition: stable 21:13 Discharge instructions given to patient, Instructed on discharge instructions, follow up and referral plans. Demonstrated understanding of instructions, follow-up care. 21:14 Patient left the ED. lg3 Signatures: Dispatcher [employer] EDMS Priscilla Dorsey rg4 Jenny Arredondo, RN RN lg3 Sowmya Cornelius, PA-C PA-C sb4 Arely Palacio rv1 Magaly Henson, RN RN nj1 Corrections: (The following items were deleted from the chart) 21:13 21:08 Reassessment: Patient appears in no apparent distress at this time. No changes lg3 from previously documented assessment. Patient and/or family updated on plan of care and expected duration. Pain level reassessed. Patient is alert, oriented x 3, equal unlabored respirations, skin warm/dry/pink. lg3
--- NOTE | 2022-12-30 20:24 | EDPHYS ---
Physician Documentation [facility] Name: Theodore Simmons Age: 32 yrs Sex: Male : 1990 Arrival Date: 12/30/2022 Time: 18:06 Bed 14 Private MD: ED Physician Aftab Rogers HPI: 12/30 19:27 This 32 yrs old Male presents to ER via Ambulatory with complaints of Chest sb4 Pain, Dizziness. 19:27 patient states that today he started experiencing an intermittent stabbing chest pain sb4 in the center of his chest. he states that it has slowly gotten worse throughout the day and he has also had some mild dizziness. he denies any shortness of breath, abdominal pain, nausea, vomiting, fever, cough, congestion. Historical: - Allergies: 18:12 No Known Allergies; nj1 - PMHx: 18:12 Asthma; Diabetes mellitus; nj1 - Immunization history:: Client reports receiving the 2nd dose of the Covid vaccine. - Social history:: Smoking status: Patient denies any tobacco usage or history of. ROS: 19:27 Constitutional: Negative for fever, chills, and weight loss. sb4 19:27 Cardiovascular: Positive for chest pain. 19:27 Neuro: Positive for dizziness. 19:27 All other systems are negative. Exam: 19:27 Constitutional: This is a well developed, well nourished patient who is awake, alert, sb4 and in no acute distress. Head/Face: Normocephalic, atraumatic. Eyes: Extra-ocular motions intact. Periorbital areas with no swelling, redness, or edema. ENT: Mucous membranes moist. Cardiovascular: Regular rate and rhythm with a normal S1 and S2. Respiratory: Lungs have equal breath sounds bilaterally, clear to auscultation and percussion. No rales, rhonchi or wheezes noted. No increased work of breathing, no retractions or nasal flaring. Abdomen/GI: Soft, non-tender, no distension. Skin: Warm, dry with normal turgor. Normal color with no rashes, no lesions, and no evidence of cellulitis. MS/ Extremity: Pulses equal, no cyanosis. Neurovascular intact. Full, normal range of motion. Neuro: Awake and alert, GCS 15, oriented to person, place, time, and situation. Cranial nerves II-XII grossly intact. Motor strength 5/5 in all extremities. Sensory grossly intact. Cerebellar exam normal. Normal gait. Vital Signs: 18:10 BP 132 / 93; Pulse 85; Resp 18; Temp 98.3(O); Pulse Ox 100% on R/A; Weight 79.83 kg; nj1 Height 5 ft. 5 in. ; Pain 9/10; 19:25 BP 134 / 85; Pulse 86; Resp 15 S; Pulse Ox 99% on R/A; lg3 21:08 BP 127 / 84; Pulse 88; Resp 16 S; Pulse Ox 99% on R/A; lg3 18:10 Body Mass Index 29.29 (79.83 kg, 165.1 cm) nj1 18:10 Pain Scale: Adult nj1 MDM: 18:11 Patient medically screened. sb4 19:27 Differential diagnosis: anxiety, hyperglycemia, cardiac arrythmia, PE, electrolyte sb4 abnormality, hypothyroidism, hyperthyroidism, drug abuse. 20:23 Data reviewed: vital signs, nurses notes, lab test result(s), EKG, radiologic studies, sb4 and as a result, I will discharge patient. Care significantly affected by the following chronic conditions: Diabetes. Counseling: I had a detailed discussion with the patient and/or guardian regarding the historical points, exam findings, and any diagnostic results supporting the discharge/admit diagnosis, lab results, radiology results, to return to the emergency department if symptoms worsen or persist or if there are any questions or concerns that arise at home. Special discussion: Based on the patient's history, exam, and Dx evaluation, there is no indication for emergent intervention or inpatient Tx. It is understood by the patient/guardian that if the Sx's persist or worsen they need to return immediately for re-evaluation. 12/30 18:13 Order name: Basic Metabolic Panel; Complete Time: 20:03 sb4 12/30 18:13 Order name: CBC with Diff; Complete Time: 19:38 sb4 12/30 18:13 Order name: D-Dimer; Complete Time: 19:41 sb4 12/30 18:13 Order name: LFT's; Complete Time: 20:03 sb4 12/30 18:13 Order name: Magnesium; Complete Time: 20:03 sb4 12/30 18:13 Order name: Troponin HS; Complete Time: 20:03 sb4 12/30 18:13 Order name: TSH; Complete Time: 20:03 sb4 12/30 18:13 Order name: SARS RAPID; Complete Time: 19:41 sb4 12/30 18:13 Order name: Flu; Complete Time: 19:50 sb4 12/30 18:13 Order name: XRAY Chest (1 view); Complete Time: 19:55 sb4 12/30 18:13 Order name: EKG; Complete Time: 18:13 sb4 12/30 18:13 Order name: Cardiac monitoring; Complete Time: 19:15 sb4 12/30 18:13 Order name: EKG - Nurse/Tech; Complete Time: 18:24 sb4 12/30 18:13 Order name: IV Saline Lock; Complete Time: 19:23 sb4 12/30 18:13 Order name: Labs collected and sent; Complete Time: 19:23 sb4 12/30 18:13 Order name: O2 Per Protocol; Complete Time: 19:15 sb4 12/30 18:13 Order name: O2 Sat Monitoring; Complete Time: 19:15 sb4 EC:23 Rate is 90 beats/min. Rhythm is regular, Normal Sinus Rhythm. MN interval is normal at sb4 126 msec. QRS interval is normal at 94 msec. QT interval is normal at 350 msec. No Q waves. T waves are Normal. No ST changes noted. Clinical impression: Normal ECG. Interpreted by me. Reviewed by me. Administered Medications: No medications were administered Disposition Summary: 12/30/22 20:23 Discharge Ordered Location: Home sb4 Problem: new sb4 Symptoms: have improved sb4 Condition: Stable sb4 Diagnosis - Chest pain, unspecified sb4 - Dizziness and giddiness sb4 Followup: sb4 - With: Private Physician - When: As needed - Reason: Recheck today's complaints, Continuance of care, Re-evaluation by your physician Discharge Instructions: - Discharge Summary Sheet sb4 - Nonspecific Chest Pain, Adult, [id number] sb4 Forms: - Medication Reconciliation Form sb4 - Thank You Letter sb4 - Antibiotic Education sb4 - Prescription Opioid Use sb4 - Patient Portal Instructions sb4 - Leadership Thank You Letter sb4 Addendum: 01/03/2023 00:04 Co-signature as Attending Physician, Aftab Rogers MD I reviewed the patient's care r n provided by the Advanced Practice Provider and agree with the diagnosis and treatment plan. Signatures: Dispatcher [employer] Aftab Juárez MD MD rn Brown, Sophia, PA-C PA-C sb4 Magaly Henson RN RN nj1
[2022-12-30 22:17] VITALS: TEMP 98.3
[2022-12-30 22:19] VITALS: O2SAT 99
[2022-12-30 22:20] VITALS: BP 127/84
--- NOTE | 2022-12-31 17:06 | EKG ---
Test Date: 2022-12-30 Test Time: 18:18:04 Carpet Floor Layer Apprentice: GARY MEASUREMENT RESULTS: Intervals: Rate: 90 [place]: 126 QRSD: 94 QT: 350 QTc: 428 [place]: P: 58 AZ: 126 QRS: 62 T: 24 INTERPRETIVE STATEMENTS: Normal sinus rhythm Normal ECG No previous ECG available for comparison Electronically Signed On 12-31-22 17:04:49 CDT by Alan Raygoza
== END 2022-12-30 21:14 | disposition home or self-care (01) ==
LOC: ER 18:06
DX: R07.9 Chest pain, unspecified (principal); R42 Dizziness and giddiness; J45.909 Unspecified asthma, uncomplicated; E11.9 Type 2 diabetes mellitus without complications; Z20.822 Contact with and (suspected) exposure to COVID-19
CPT/HCPCS: 36415; 71045; 80048; 80076; 83735; 84443; 84484; 85025; 85379; 87804; 87811; 93005; 99285

== ENCOUNTER 2023-07-18 15:55 | Observation (INO) | payer BC ==
--- OUTSIDE RECORDS SUMMARY | 2023-07-18 15:58 | XMS REPORT | Continuity of Care Document ---
Author Name Unknown Address [address] [facility] [address] [place] [address] [facility] thconnect Address [address] [facility] [address] [place] [address] Care Team Providers Care Residential Support Specialist Name Role Phone Pcp, Patient Does Not Have A Primary Care Physic bonifacio CORIE MONTANO Attending Clinician Unavailable Lab, Adc Fam Pob I Attending Clinician Unavailab Paulie Ying Attending Clinician [phone] Doctor Unassigned, [facility] Attending Clinician U navailable Payers Payer Name Policy Type Policy Number Effective Date Expirati on Date Source [facility] [id number] 2017 00:00:00 Problems Condition Name Condition Details Condition Category Status Onset Date Resolution Date Last Treatment Date Treating Clinician Comments Source Status post left inguinal herniorrha phy Status post left inguinal herniorrha phy Disease Active 07-09 00:00: 00 [facility] Allergies, Adverse Reactions, Alerts Allergy Name Allergy Type Status Severity Reaction(s) Onset Date Inactive Date Treating Clinician Comments Source NO KNOWN ALLERGIE S Drug Class Active [facility] Social History Social Habit Start Date Stop Date Quantity Comments Source [facility] SARS-CoV-2 (event) 2019-11-05 00:00:00 2019-12-05 22:31:00 [facility] Alcohol intake 2012-07-08 00:00:00 2012-07-08 00:00:00 [facility] Alcohol Comment 2012-06-03 00:00:00 2012-06-03 00:00:00 occas. 2 x a month [facility] Sex Assigned At 1990 00:00:00 1990 00:00:00 [facility] Smoking Status Start Date Stop Date Source Never smoked tobacco [facility] Encounters Start Date/Time End Date/Time Encounter Type Admission Type Attending [facility] Care Department Encounter ID Source 2021-02-17 12:41:22 Emergency [facility] [id number] [facility] 2019-12-22 13:20:00 2019-12-22 13:20:00 Outpatient CORIE BRICE [facility] [id number] [facility] 2019-12-22 12:36:31 2019-12-22 12:56:31 Laboratory Only Lab, Adc Fam Pob I [facility] Office [address] 1..114 [id number] 2019-12-05 22:39:00 2019-12-06 00:46:00 Emergency Paulie Martinez [facility] [id number] 2019-11-26 00:00:00 2019-11-26 00:00:00 Patient Secure Msg Doctor Unassigned, [facility] 1.114 [id number] [facility] 2019-11-25 17:07:43 2019-11-25 17:27:43 Client Service Manager Visit Lab, Adc Fam Pob I [facility] Office [facility] One [id number] 2019-11-25 16:40:00 2019-11-25 16:40:00 Outpatient CORIE BRICE [facility] [id number] [facility] 2019-11-25 08:40:00 2019-11-25 08:40:00 Outpatient CORIE BRICE [facility] [id number] [facility] 2019-11-25 08:40:00 2019-11-25 08:40:00 Outpatient CORIE BRICE [facility] [id number] [facility]
[2023-07-18] MEDS ORDERED: FAMOTIDINE 20 MG/2 ML VIAL IV ONE (16:16)
[2023-07-18] MEDS ORDERED: NA CHLORIDE 0.9% 1,000 ML ONE ×2 (16:16→20:19)
[2023-07-18 16:40] LABS: Absolute Lymphocytes (CBC) 2.3 K/uL (0.7-4.9); Absolute Monocytes 0.8 K/uL (0.1-1.3); Absolute Neutrophil 8.7 K/uL (1.8-8.0); Basophils % 0.3 % (0-1.3); Hematocrit 43.7 % (39.6-49.0); Hemoglobin 15.4 g/dL (13.6-17.9); Lymphocytes % 19.2 % (15.3-44.8); MCH 28.9 pg (27.0-35.0); MCHC 35.1 g/dL (32.0-36.0); MCV 82.4 fL (80-100); MPV 8.2 fL (7.6-11.3); Monocytes % 6.9 % (3.3-12.3); Neutrophils % 73.6 % (41.7-73.7); Nucleated Red Blood Cells % 0.2 % (0-0); Platelets 274 thou/uL (152-406); RBC Red Blood Cell Count 5.31 M/uL (4.33-5.43); Red Cell Distribution Width 13.8 % (12.1-15.2)
[2023-07-18 16:55] LABS: Albumin 3.9 g/dL (3.4-5.0); Anion Gap 7.6 mEq/L (5.0-15.0); Bilirubin Total 0.3 mg/dL (0.2-1.0); Globulin 4.1 g/dL (2.3-3.5); Potassium 3.6 mEq/L (3.5-5.1)
[2023-07-18] MEDS ORDERED: MORPHINE 4 MG/ML SYR ONE ×2 (17:14→18:12)
[2023-07-18] MEDS ORDERED: ONDANSETRON 4 MG/2 ML VIAL ONE ×2 (17:14→20:19)
--- NOTE | 2023-07-18 18:50 | RAD REPORT ---
EXAM DESCRIPTION: CT - Abdomen Pelvis W Contrast - 07/18/2023 5:46 pm CLINICAL HISTORY: ABD PAIN COMPARISON: CT ABD PELVIS W CONTRAST dated 07/14/2015 TECHNIQUE: Thin cut axial CT imaging of the abdomen and pelvis was performed following intravenous a dministration of 100 mL Isovue 300. Multiplanar reformats were generated and reviewed. All CT scans are performed using dose optimization technique as appropriate and may include automated exposure control or mA/KV adjustment according to patient size. FINDINGS: No suspicious findings in the lung bases. The liver, spleen, adrenal glands, and pancreas show no suspicious findings. Gallbladder and biliary tree are also without suspicious finding. Symmetric renal function is seen with no hydronephrosis or suspicious renal mass. No dilated bowel loops or bowel wall thickening. No free air, free fluid or inflammatory stranding. N o hernia, mass or bulky lymphadenopathy. Left pelvic sidewall lobulated soft tissue density measuring 1.7 x 1.5 cm, adjacent to the left iliac vessels. Prominent left pampiniform plexus. The urinary bladder is without significant finding. No suspicious bony findings. IMPRESSION: No acute intra-abdominal process. Prominent left pampiniform plexus, and left pelvic sidewall lobulated 1.7 cm soft tissue density jaqueline cent to the inguinal ring, which may relate to a varicocele component or reactive lymph nodes.
[2023-07-18] MEDS ORDERED: HYDROMORPHONE HCL 1 MG/ML INJ ONE (19:09)
--- NOTE | 2023-07-18 19:24 | ER ---
Nurse's Notes [facility] Name: Theodore Simmons Age: 33 yrs Sex: Male : 1990 Arrival Date: 07/18/2023 Time: 15:55 Bed 19 Private MD: Eagle Salinas Diagnosis: acute pancreatitis Presentation: 07/17 15:59 Chief complaint: Patient states: 4 hours of abdominal pain in the right and left upper ko1 quad, nausea but no vomiting or diarrhea. Coronavirus screen: At this time, the client does not indicate any symptoms associated with coronavirus-19. Ebola Screen: No symptoms or risks identified at this time. Initial Sepsis Screen: Does the patient meet any 2 criteria? No. Patient's initial sepsis screen is negative. Does the patient have a suspected source of infection? No. Patient's initial sepsis screen is negative. Risk Assessment: Do you want to hurt yourself or someone else? Patient reports no desire to harm self or others. Onset of symptoms was July 18, 2023. 15:59 Method Of Arrival: Ambulatory ko1 15:59 Acuity: JOE 3 ko1 Triage Assessment: 16:02 General: Appears uncomfortable, Behavior is calm, cooperative, appropriate for age. ko1 Pain: Complains of pain in right upper quadrant and left upper quadrant. GI: Reports upper abdominal pain, nausea. Historical: - Allergies: 16:02 No Known Allergies; ko1 - PMHx: 16:02 Asthma; diabetes mellitus; ko1 - PSHx: 16:02 Appendectomy; ko1 - Immunization history:: Adult Immunizations unknown. - Social history:: Smoking status: Patient denies any tobacco usage or history of. Screenin:05 [facility] ED Fall Risk Assessment (Adult) History of falling in the last 3 months, rs5 including since admission No falls in past 3 months (0 pts) Confusion or Disorientation No (0 pts) Intoxicated or Sedated No (0 pts) Impaired Gait No (0 pts) Mobility Assist Device Used No (0 pt) Altered Elimination No (0 pt) Score/Fall Risk Level 0 - 2 = Low Risk Oriented to surroundings, Maintained a safe environment. 16:05 Abuse screen: Denies threats or abuse. Nutritional screening: No deficits noted. rs5 Tuberculosis screening: No symptoms or risk factors identified. Assessment: 16:05 General: Appears in no apparent distress. uncomfortable, Behavior is calm, cooperative. rs5 16:05 Pain: Complains of pain in epigastric area Pain does not radiate. Pain currently is 9 rs5 out of 10 on a pain scale. Quality of pain is described as aching, Is continuous. Neuro: Level of Consciousness is awake, alert, obeys commands, Oriented to person, place, time, situation. 16:05 Cardiovascular: Patient's skin is warm and dry. Rhythm is regular. Respiratory: rs5 Respiratory effort is even, unlabored, Respiratory pattern is regular, symmetrical. GI: Abdomen is round non-distended, Bowel sounds present X 4 quads. Abd is soft and non tender X 4 quads. : No signs and/or symptoms were reported regarding the genitourinary system. EENT: No signs and/or symptoms were reported regarding the EENT system. Derm: Skin is intact, Skin is pink, warm \T\ dry. Musculoskeletal: Range of motion: intact in all extremities. 17:11 Reassessment: Patient and/or family updated on plan of care and expected duration. Pain rs5 level reassessed. Patient is alert, oriented x 3, equal unlabored respirations, skin warm/dry/pink. Patient denies pain at this time. Patient states feeling better. Patient states symptoms have improved. 18:09 Reassessment:. Pain: Complains of pain in epigastric area Pain currently is 9 out of 10 rs5 on a pain scale. Quality of pain is described as aching, Is continuous. 18:10 Reassessment: Provider notified pt is experiencing pain. rs5 19:10 General: Appears in no apparent distress. uncomfortable, Behavior is calm, cooperative. lg3 19:10 Pain: Complains of pain in epigastric area Pain does not radiate. Pain currently is 9 lg3 out of 10 on a pain scale. Quality of pain is described as aching, heavy, pressure. Neuro: No deficits noted. August Agitation-Sedation Scale (RASS): 0 - Alert and Calm Level of Consciousness is awake, alert, obeys commands, Oriented to person, place, time, situation. Cardiovascular: No deficits noted. Denies chest pain, shortness of breath, Capillary refill < 3 seconds Clubbing of nail beds is absent JVD is absent Patient's skin is warm and dry. Respiratory: No deficits noted. Airway is patent Respiratory effort is even, unlabored, Respiratory pattern is regular, symmetrical, Breath sounds are clear bilaterally. GI: Abdomen is round non-distended, Bowel sounds present X 4 quads. Reports upper abdominal pain. : No deficits noted. No signs and/or symptoms were reported regarding the genitourinary system. EENT: No deficits noted. No signs and/or symptoms were reported regarding the EENT system. Derm: No deficits noted. No signs and/or symptoms reported regarding the dermatologic system. Skin is intact, is healthy with good turgor, Skin is dry, Skin is normal, Skin temperature is warm. Musculoskeletal: No deficits noted. No signs and/or symptoms reported regarding the musculoskeletal system. Circulation, motion, and sensation intact. Range of motion: intact in all extremities. Vital Signs: 15:59 BP 147 / 107; Pulse 75; Resp 15; Temp 97.5; Pulse Ox 100% ; ko1 17:20 BP 145 / 97; Pulse 76; Resp 18; Pulse Ox 99% on R/A; rs5 18:22 BP 140 / 88; Pulse 80; Resp 18; Pulse Ox 99% on R/A; rs5 19:10 BP 140 / 92; Pulse 79; Resp 17 S; Pulse Ox 99% on R/A; lg3 ED Course: 15:57 Patient arrived in ED. rg4 15:58 Eagle Salinas MD is Private Physician. rg4 15:58 Sowmya Cornelius [facility] sb4 15:58 Florentin Rodriguez MD is Attending Physician. sb4 15:59 Sienna Hazel, YAYA is Primary Nurse. ko1 16:02 Triage completed. ko1 16:02 Arm band placed on right wrist. Patient placed in an exam room, on a stretcher, on ko1 pulse oximetry, Patient notified of wait time. 16:05 Patient has correct armband on for positive identification. Placed in gown. Bed in low rs5 position. Call light in reach. Side rails up X2. 16:05 No provider procedures requiring assistance completed. rs5 17:48 CT Abd/Pelvis - IV Contrast Only In Process Unspecified. EDMS 19:10 Client placed on continuous cardiac and pulse oximetry monitoring. NIBP monitoring lg3 applied. teletypesetter monitor on. Door closed. Noise minimized. Warm blanket given. Family accompanied patient. 19:10 Inserted saline lock: 20 gauge in right antecubital area, using aseptic technique. lg3 Patient maintains SpO2 saturation greater than 95% on room air. 19:23 Gigi Vega MD is Hospitalizing Provider. sb4 19:56 US Abdomen Limited In Process Unspecified. EDMS 07/18 07:03 Primary Nurse role handed off by Sienna Hazel RN eb Administered Medications: 07/17 16:25 Drug: NS 0.9% IV 1000 ml IV at 1 bolus Per protocol; 1000 mL bolus Route: IV; Rate: 1 rs5 bolus; Site: right antecubital; 16:45 Follow up: Response: No adverse reaction rs5 17:22 Follow up: IV Status: Completed infusion rs5 16:25 Drug: Famotidine IVP 20 mg IVP once; dilute with 10 mL 0.9% NaCl; give over 2 minutes rs5 Route: IVP; Site: right antecubital; 16:50 Follow up: Response: No adverse reaction rs5 17:05 Drug: morphine IVP or IV 4 mg IVP once over 4 mins Route: IVP; Infused Over: 4 mins; rs5 Site: right antecubital; 17:10 Follow up: Response: No adverse reaction; Pain is decreased rs5 17:05 Drug: Ondansetron IVP 4 mg IVP once; over 2 minutes Route: IVP; Site: right antecubital;rs5 17:20 Follow up: Response: No adverse reaction rs5 18:17 Drug: morphine IVP or IV 4 mg IVP once over 4 mins Route: IVP; Infused Over: 4 mins; rs5 Site: right antecubital; 19:12 Follow up: Response: No adverse reaction; No change in condition; Pain is unchanged, lg3 physician notified 19:12 Drug: HYDROmorphone IVP 1 mg IVP once Route: IVP; Site: right antecubital; lg3 19:53 Follow up: Response: No adverse reaction; Marked relief of symptoms; Pain is decreased lg3 Medication: 17:39 VIS not applicable for this client. rs5 Outcome: 19:24 Decision to Hospitalize by Provider. sb4 07/18 12:37 Patient left the ED. kc6 Signatures: Dispatcher [employer] Priscilla Patricia rg4 Cristina Oseguera Lacie, RN RN lg3 Lesly Fletcher RN RN kc6 Sienna Hazel RN RN ko1 Sowmya Cornelius PA-C PA-C sb4 Spenser Wiggins, RN RN rs5 Corrections: (The following items were deleted from the chart) 07/17 16:03 16:02 PSHx: None; ko1 ko1 18:21 16:05 General: Appears in no apparent distress. uncomfortable, Behavior is calm, rs5 cooperative, rs5
--- NOTE | 2023-07-18 19:25 | EDPHYS ---
Physician Documentation [facility] Name: Theodore Simmons Age: 33 yrs Sex: Male : 1990 Arrival Date: 07/18/2023 Time: 15:55 Bed 19 Private MD: Eagle Salinas ED Physician Florentin Rodriguez HPI: 07/17 16:08 This 33 yrs old Male presents to ER via Ambulatory with complaints of sb4 Abdominal Pain. 16:08 The patient presents with abdominal pain in the epigastric area. Onset: The sb4 symptoms/episode began/occurred 4 hour(s) ago. The symptoms do not radiate. Associated signs and symptoms: Pertinent positives: nausea, Pertinent negatives: diarrhea, vomiting. The symptoms are described as burning. The patient has not experienced similar symptoms in the past. The patient has not recently seen a physician. Historical: - Allergies: 16:02 No Known Allergies; ko1 - PMHx: 16:02 Asthma; diabetes mellitus; ko1 - PSHx: 16:02 Appendectomy; ko1 - Immunization history:: Adult Immunizations unknown. - Social history:: Smoking status: Patient denies any tobacco usage or history of. ROS: 16:08 Constitutional: Negative for fever, chills, and weight loss, sb4 16:08 Abdomen/GI: Positive for abdominal pain, nausea, 16:08 All other systems are negative, Exam: 16:08 Constitutional: This is a well developed, well nourished patient who is awake, alert, sb4 and in no acute distress. Head/Face: Normocephalic, atraumatic. Eyes: Extra-ocular motions intact. Periorbital areas with no swelling, redness, or edema. ENT: Mucous membranes moist. Cardiovascular: Regular rate and rhythm with a normal S1 and S2. Respiratory: Lungs have equal breath sounds bilaterally, clear to auscultation and percussion. No rales, rhonchi or wheezes noted. No increased work of breathing, no retractions or nasal flaring. Skin: Warm, dry with normal turgor. Normal color with no rashes, no lesions, and no evidence of cellulitis. MS/ Extremity: Pulses equal, no cyanosis. Neurovascular intact. Full, normal range of motion. Neuro: Awake and alert, GCS 15, oriented to person, place, time, and situation. Motor strength 5/5 in all extremities. Sensory grossly intact. 16:08 Abdomen/GI: Inspection: abdomen appears normal, Bowel sounds: normal, Palpation: soft, moderate abdominal tenderness, in the epigastric area and right upper quadrant, Vital Signs: 15:59 BP 147 / 107; Pulse 75; Resp 15; Temp 97.5; Pulse Ox 100% ; ko1 17:20 BP 145 / 97; Pulse 76; Resp 18; Pulse Ox 99% on R/A; rs5 18:22 BP 140 / 88; Pulse 80; Resp 18; Pulse Ox 99% on R/A; rs5 19:10 BP 140 / 92; Pulse 79; Resp 17 S; Pulse Ox 99% on R/A; lg3 MDM: 16:04 Patient medically screened. sb4 16:08 Differential diagnosis: cholecystitis, Cholelithiasis, gastritis, gastroesophageal sb4 reflux disease, non-specific abd pain, pancreatitis, Peptic Ulcer Disease. 19:23 Data reviewed: vital signs, nurses notes, lab test result(s), radiologic studies, and sb4 as a result, I will admit patient. Consideration of Admission/Observation Patient was admitted/placed on observation. Management of patient was discussed with the following: Hospitalist: Dr. Vega. Counseling: I had a detailed discussion with the patient and/or guardian regarding the historical points, exam findings, and any diagnostic results supporting the discharge/admit diagnosis, lab results, radiology results, the need for further work-up and treatment in the hospital. 07/17 16:07 Order name: CBC with Diff; Complete Time: 16:50 sb4 07/17 16:07 Order name: CMP; Complete Time: 16:57 sb4 07/17 16:07 Order name: Lipase; Complete Time: 16:57 sb4 07/17 20:08 Order name: CBC with Automated Diff EDMI 07/17 20:08 Order name: CBC with Automated Diff; Complete Time: 09:03 EDMS 07/17 20:08 Order name: Comprehensive Metabolic Panel EDMI 07/17 20:08 Order name: Comprehensive Metabolic Panel; Complete Time: 09:03 EDMS 07/17 20:08 Order name: Lipase EDMI 07/17 20:08 Order name: Lipase; Complete Time: 09:03 EDMS 07/17 20:08 Order name: Lipid Profile EDMI 07/17 20:08 Order name: Lipid Profile; Complete Time: 09:03 EDMS 07/17 20:08 Order name: Troponin High Sensitivity EDMI 07/17 20:08 Order name: Troponin High Sensitivity; Complete Time: 09:03 EDMI 07/17 20:08 Order name: Troponin High Sensitivity [facility] 07/17 20:08 Order name: Troponin High Sensitivity [facility] 07/17 17:19 Order name: CT Abd/Pelvis - IV Contrast Only; Complete Time: 18:52 sb4 07/17 19:25 Order name: US Abdomen Limited; Complete Time: 20:21 sb4 07/17 16:07 Order name: IV Saline Lock; Complete Time: 16:30 sb4 07/17 16:07 Order name: Labs collected and sent; Complete Time: 16:30 sb4 Administered Medications: 16:25 Drug: NS 0.9% IV 1000 ml IV at 1 bolus Per protocol; 1000 mL bolus Route: IV; Rate: 1 rs5 bolus; Site: right antecubital; 16:45 Follow up: Response: No adverse reaction rs5 17:22 Follow up: IV Status: Completed infusion rs5 16:25 Drug: Famotidine IVP 20 mg IVP once; dilute with 10 mL 0.9% NaCl; give over 2 minutes rs5 Route: IVP; Site: right antecubital; 16:50 Follow up: Response: No adverse reaction rs5 17:05 Drug: morphine IVP or IV 4 mg IVP once over 4 mins Route: IVP; Infused Over: 4 mins; rs5 Site: right antecubital; 17:10 Follow up: Response: No adverse reaction; Pain is decreased rs5 17:05 Drug: Ondansetron IVP 4 mg IVP once; over 2 minutes Route: IVP; Site: right antecubital;rs5 17:20 Follow up: Response: No adverse reaction rs5 18:17 Drug: morphine IVP or IV 4 mg IVP once over 4 mins Route: IVP; Infused Over: 4 mins; rs5 Site: right antecubital; 19:12 Follow up: Response: No adverse reaction; No change in condition; Pain is unchanged, lg3 physician notified 19:12 Drug: HYDROmorphone IVP 1 mg IVP once Route: IVP; Site: right antecubital; lg3 19:53 Follow up: Response: No adverse reaction; Marked relief of symptoms; Pain is decreased lg3 Disposition Summary: 07/18/23 19:24 Hospitalization Ordered Notes: Provider: Gigi Vega sb4 Condition: Fair sb4 Problem: new sb4 Symptoms: are unchanged sb4 Bed/Room Type: Standard sb4 Hospitalization Status: Observation(07/18/23 19:42) sb4 Location: [facility] ER HOLD(07/19/23 12:06) Room Assignment: (07/19/23 12:06) Diagnosis - acute pancreatitis sb4 Forms: - Medication Reconciliation Form sb4 - SBAR form sb4 - Leadership Thank You Letter sb4 Signatures: Dispatcher [employer] EDKendra Cleveland, RN RN cg Cristina Oseguera Lacie, RN RN lg3 Sienna Hazel RN RN ko1 Sowmya Cornelius PAJtC PA-C sb4 Arely Palacio rv1 Spenser Wiggins RN RN rs5 Corrections: (The following items were deleted from the chart) 16:03 16:02 PSHx: None; ko1 ko1 19:42 19:24 Inpatient Admission sb4 sb4 19:42 19:24 Telemetry/MedSurg (Inpatient) sb4 sb4 19:42 19:24 sb4 sb4 20:38 19:42 Telemetry/MedSurg (observation) sb4 cg 20:38 19:42 sb4 cg 23:22 20:38 [facility] ER HOLD cg rv1 23:22 20:38 ERHOLD- cg rv1 23:23 23:22 rv1 rv1 07/18 12:04 07/17 23:22 [facility] ER HOLD rv1 eb 07/18 12:04 07/17 23:23 ERHOLD- rv1 eb 07/18 12:06 12:04 Telemetry/MedSurg (observation) eb 12:06 12:04 [id number]
--- NOTE | 2023-07-18 20:00 | P.HP ---
Certification for Inpatient Patient admitted to: Observation With expected LOS: <2 Midnights Patient will require the following post-hospital care: None Practitioner: I am a practitioner with admitting privileges, knowledge of patient current condition, hospital course, and medical plan of care. Services: Services provided to patient in accordance with Admission requirements found in Title 42 Section 412.3 of the Code of Federal Regulations Patient History Date of Service: 07/18/23 Reason for admission: Abdominal pain/nausea and vomiting History of Present Illness: Patient is a 33-year-old gentleman who presents to the hospital with abdominal discomfort. Patient states he was feeling well all day. He ate at [employer] this morning. This afternoon he started having some abdominal discomfort. Pain was mainly in the epigastric region. He was up and the pain will subside, but after a few hours with no pain relief patient came into the emergency room for further evaluation. In the ER, patient was evaluated by MARYCRUZ. Patient had labs and imaging studies performed. Labs showed a mildly elevated lipase of 170. CT scan was unremarkable. Gallbladder ultrasound showed sludge in the gallbladder. Otherwise, patient is feeling much better after the pain medication was given. Patient will be admitted for observation. Patient's only medical history is positive for asthma and diabetes. Patient stated he has been on Mounjaro for the last 12 months. He follows up with Dr. Curiel. Patient has lost about 60 pounds. His hemoglobin A1c is in the 50s. There has been no change in dosage of Mounjaro. This can precipitate gastroparesis type symptoms. We may have him hold off on it for the next 7 to 14 days. He can be reassessed by Dr. Curiel in the outpatient setting. Allergies No Known Allergies Allergy (Verified 03/07/20 08:23) Home Medications: Budesonide/Formoterol Fumarate [Symbicort 80-4.5 Mcg Inhaler] 1 puff IH BID 07/27/15 Albuterol Sulfate [Proair Hfa] 2 puff IH BID 03/07/20 Benralizumab [Fasenra Pen] 30 mg SQ DIRECTED 03/09/20 - Past Medical/Surgical History -: Type 2 diabetes -: Asthma -: Appendectomy - Family History Father Family History: Reviewed- Non-Contributory - Social History Smoking Status: Never smoker Alcohol use: No CD- Drugs: No Review of Systems 10-point ROS is otherwise unremarkable Physical Examination - Vital Signs Temperature: 98 F Blood Pressure: 140/80 Pulse: 80 Respirations: 18 Pulse Ox (%): 95 - Physical Exam General: Alert, In no apparent distress, Oriented x3 HEENT: Atraumatic, PERRLA, Mucous membr. moist/pink, EOMI, Sclerae nonicteric Neck: Supple, 2+ carotid pulse no bruit, No LAD, Without JVD or thyroid abnormality Respiratory: Clear to auscultation bilaterally, Normal air movement Cardiovascular: Regular rate/rhythm, Normal S1 S2 Gastrointestinal: Soft and benign, Non-distended, No rebound, No guarding, Tenderness Musculoskeletal: No clubbing, No swelling, No tenderness Integumentary: No rashes Neurological: Normal gait, Normal speech, Normal strength at 5/5 x4 extr, Normal tone, Sensation intact, Cranial nerves 3-12 intact, Normal affect Lymphatics: No axilla or inguinal lymphadenopathy - Studies Laboratory Data (last 24 hrs) 07/18/23 07/18/23 16:27 16:27 WBC 11.80 H Hgb 15.4 Hct 43.7 Plt Count 274 Sodium 139 Potassium 3.6 BUN 12 Creatinine 0.92 Glucose 123 H Total Bilirubin 0.3 AST 17 ALT 22 Alkaline Phosphatase 71 Lipase 170 H Assessment & Plan - Problems (Diagnosis) (1) Abdominal pain Current Visit: Yes Status: Acute (2) Intractable nausea and vomiting Current Visit: Yes Status: Acute (3) Leukocytosis Current Visit: Yes Status: Acute (4) Elevated lipase Current Visit: Yes Status: Acute - Plan Plan: 1. Patient with abdominal pain and intractable nausea and vomiting; I think patient had incidental elevation of lipase. Patient's imaging studies only suggest sludge in the gallbladder but there is no evidence of elevated bilirubin or elevated LFTs. Patient will be given antiemetics and IV hydration. Patient possibly has a viral gastroenteritis that has precipitated his symptoms. Will monitor him over the next 12 to 24 hours and as long as he is clinically doing well anticipate him going home in the morning. Patient can follow-up with general surgery electively as an outpatient if he feels like getting his gallbladder further evaluated. No inpatient hospitalization or consultation necessary at this time. Continue with antiemetics 2. Type 2 diabetes; patient's hemoglobin A1c is in the low fives. Patient is on Mounjaro. Patient will need to hold off for the next 1 to 2 weeks. Follow- up with PCP for further initiation of Mounjaro. 3. GI and DVT prophylaxis Discharge Plan: Home Plan to discharge in: 24 Hours - Advance Directives Does patient have a Living Will: No Does patient have a Durable POA for Healthcare: No - Code Status/Comfort Care Code Status Assessed: Yes Code Status: Full Code Critical Care: No Time Spent Managing PTS Care (In Minutes): 40
[2023-07-18] MEDS ORDERED: ACETAMINOPHEN 500 MG TAB PO PRN (20:03)
--- NOTE | 2023-07-18 20:20 | RAD REPORT ---
EXAM DESCRIPTION: US - Abdomen Exam Limited - 07/18/2023 7:55 pm CLINICAL HISTORY: GB/pancreatitis;Abd pain COMPARISON: Abdomen Pelvis W Contrast dated 07/18/2023 TECHNIQUE: Sonographic grayscale and color flow images of the right upper abdominal quadrant were o btained. FINDINGS: The gallbladder demonstrates no gallstones. Layering mildly echogenic sludge. No perichole cystic fluid or gallbladder wall thickening. The common bile duct is normal measuring 2 mm. The liver demonstrates no findings of intrahepatic biliary dilatation. IMPRESSION: Gallbladder sludge without sonographic evidence of gallstones or acute cholecystitis.
[2023-07-18] MEDS: ONDANSETRON 4 MG/2 ML VIAL IV PRN (20:29)
[2023-07-18] MEDS: NA CHLORIDE 0.9% 1,000 ML IV SCH (20:29)
[2023-07-18 21:10] VITALS: BMI 29.1
[2023-07-19] MEDS ORDERED: HYDROMORPHONE HCL 0.5 MG/0.5 ML INJ ONE (01:40)
[2023-07-19] MEDS: HYDROMORPHONE HCL 0.5 MG/0.5 ML INJ IV PRN (01:44)
[2023-07-19] MEDS ORDERED: NA CHLORIDE 0.9% 1,000 ML ONE ×2 (03:07→11:07)
[2023-07-19 06:01] LABS: Absolute Lymphocytes (CBC) 2.3 K/uL (0.7-4.9); Absolute Monocytes 1.1 K/uL (0.1-1.3); Absolute Neutrophil 8.6 K/uL (1.8-8.0); Basophils % 0.1 % (0-1.3); Hematocrit 40.6 % (39.6-49.0); Hemoglobin 14.2 g/dL (13.6-17.9); Lymphocytes % 19.4 % (15.3-44.8); MCV 82.9 fL (80-100); MPV 8.3 fL (7.6-11.3); Monocytes % 8.9 % (3.3-12.3); Neutrophils % 71.6 % (41.7-73.7); Nucleated Red Blood Cells % 0.1 % (0-0); Platelets 247 thou/uL (152-406); Red Cell Distribution Width 13.7 % (12.1-15.2)
[2023-07-19 06:12] LABS: ALT/SGPT 55 U/L (16-61); AST/SGOT 40 U/L (15-37); Albumin 3.4 g/dL (3.4-5.0); Alkaline Phosphatase 68 U/L (45-117); Anion Gap 5.6 mEq/L (5.0-15.0); BUN Blood Urea Nitrogen 7 mg/dL (7-18); Bicarbonate 28 mEq/L (21-32); Bilirubin Total 0.6 mg/dL (0.2-1.0); Globulin 3.5 g/dL (2.3-3.5); Glomerular Filtration Rate 121 ml/min (=/>90); Glucose Level 85 mg/dL (74-106); HDL Cholesterol 49 mg/dL (40-60); LDL Cholesterol, Calculated 49 mg/dL (<130); LDL Cholesterol,Calc NonReport 49; Lipase 100 U/L (13-75); Potassium 3.6 mEq/L (3.5-5.1); Protein, Total 6.9 g/dL (6.4-8.2); Sodium Level 139 mEq/L (136-145)
[2023-07-19 06:13] LABS: Troponin High Sensitivity < 3.0 pg/mL (<58.9)
[2023-07-19] MEDS: INFLUENZA VACCINE (for 6+ mo) 0.5 ML DOSE IMVAC ONE (08:20)
--- NOTE | 2023-07-19 12:24 | P.DS ---
Admission Date: 07/18/23 Discharge Date: 07/19/23 Disposition: ROUTINE DISCHARGE Discharge Condition: FAIR Reason for Admission: Abdominal pain/nausea and vomiting - Problems (1) Acute gastroenteritis Current Visit: Yes Status: Acute (2) Elevated lipase Current Visit: Yes Status: Acute Brief History of Present Illness: Patient is a 33-year-old gentleman who presents to the hospital with abdominal discomfort. Symptoms started after he ate at [id number] This afternoon he started having some abdominal discomfort. Pain was mainly in the epigastric region. In the ER, labs showed a mildly elevated lipase of 170. CT scan was unremarkable. Gallbladder ultrasound showed sludge in the gallbladder. Patient stated he has been on Mounjaro for the last 12 months. He follows up with Dr. Curiel, has lost about 60 pounds. Patient was hospitalized for further management. Hospital Course: Patient placed on observation on the medical floor and treated with supportive measures which included an IV hydration and analgesics. His symptoms improved, lipase level checked and trended down. He tolerated diet advancement to solid diet. He is currently asymptomatic with stable vitals. Patient is deemed stable for discharge. Vital Signs/Physical Exam: Temp Pulse Resp BP Pulse Ox 98.7 F 95 H 16 110/76 96 07/19/23 12:00 07/19/23 12:00 07/19/23 12:00 07/19/23 12:00 07/19/23 12:00 General: Alert, In no apparent distress, Oriented x3 HEENT: Mucous membr. moist/pink, Sclerae nonicteric Neck: Supple, JVD not distended Respiratory: Clear to auscultation bilaterally, Normal air movement Cardiovascular: No edema, Regular rate/rhythm, Normal S1 S2 Gastrointestinal: Normal bowel sounds, Soft and benign, Non-distended, No tenderness Musculoskeletal: No swelling Integumentary: No rashes, No cyanosis Neurological: Normal strength at 5/5 x4 extr Laboratory Data at Discharge: WBC 12.10 thou/uL (4.3-10.9) H 07/19/23 05:30 Hgb 14.2 g/dL (13.6-17.9) 07/19/23 05:30 Hct 40.6 % (39.6-49.0) 07/19/23 05:30 Plt Count 247 thou/uL (152-406) 07/19/23 05:30 Sodium 139 mEq/L (136-145) 07/19/23 05:30 Potassium 3.6 mEq/L (3.5-5.1) 07/19/23 05:30 BUN 7 mg/dL (7-18) 07/19/23 05:30 Creatinine 0.76 mg/dL (0.70-1.30) 07/19/23 05:30 Glucose 85 mg/dL (74-106) 07/19/23 05:30 Total Bilirubin 0.6 mg/dL (0.2-1.0) 07/19/23 05:30 AST 40 U/L (15-37) H 07/19/23 05:30 ALT 55 U/L (16-61) 07/19/23 05:30 Alkaline Phosphatase 68 U/L (45-117) 07/19/23 05:30 Triglycerides 81 mg/dL (<150) 07/19/23 05:30 Cholesterol 114 mg/dL (<200) 07/19/23 05:30 HDL Cholesterol 49 mg/dL (40-60) 07/19/23 05:30 Cholesterol/HDL Ratio 2.33 07/19/23 05:30 Lipase 100 U/L (13-75) H 07/19/23 05:30 Home Medications: Budesonide/Formoterol Fumarate [Symbicort 80-4.5 Mcg Inhaler] 1 puff IH BID 07/27/15 Albuterol Sulfate [Proair Hfa] 2 puff IH BID 03/07/20 Tirzepatide [Mounjaro] 15 mg SQ Q7D 07/18/23 Ciprofloxacin HCl [Cipro] 500 mg PO BID #10 tab 07/19/23 metroNIDAZOLE [Flagyl] 500 mg PO Q8H #15 tab 07/19/23 New Medications: Ciprofloxacin HCl [Cipro] 500 mg PO BID #10 tab metroNIDAZOLE [Flagyl] 500 mg PO Q8H #15 tab Diet: ADA Activity: Ad ana Followup: NONE,NONE [UNKNOWN] - Time spent managing pt's care (in minutes): 26
[2023-07-19 13:04] VITALS: BP 140/92; TEMP 97.5; O2SAT 99
== END 2023-07-19 12:38 | disposition home or self-care (01) ==
LOC: ER 15:55 → ERHOLD 20:03
PROVIDERS: ADMIT Hospitalist; ATTEND Internal Medicine
DX: K52.9 Noninfective gastroenteritis and colitis, unspecified (principal); R11.2 Nausea with vomiting, unspecified; D72.829 Elevated white blood cell count, unspecified; R74.8 Abnormal levels of other serum enzymes
CPT/HCPCS: 96361; 85025 ×2; 36415; 80061; 84484; 83690 ×2; 80053 ×2; 74177; 76705; 96375; 96374; 99285; Q9967; J1170 ×2; J2405 ×2; J7030 ×4; G0378

== ENCOUNTER 2024-12-11 20:07 | Emergency (ER) | payer BC ==
[2024-12-11 21:08] LABS: Influenza A Ag Negative; Influenza B Ag Negative; SARS-CoV-2 Antigen Rapid Res Negative (Negative)
--- NOTE | 2024-12-11 21:19 | EDPHYS ---
Physician Documentation [facility] Name: Theodore Simmons Age: 34 yrs Sex: Male : 1990 Arrival Date: 12/11/2024 Time: 20:07 Bed IW2 Private MD: ED Physician Florenitn Rodriguez HPI: 12/11 20:45 This 34 yrs old Male presents to ER via Ambulatory with complaints of cp Headache, Doesn't Feel Right. 20:45 Patient is a 34-year-old male who presents to the emergency department with concerns of cp a slight headache and reports that he just does not feel well. Patient denies fever, denies cough, denies sore throat. Patient reports family member, daughter, tested positive for flu over the past several days. Historical: - Allergies: 20:39 No Known Allergies; me1 - PMHx: 20:39 Asthma; diabetes mellitus; me1 - PSHx: 20:39 Appendectomy; Cholecystectomy; me1 - Immunization history:: Adult Immunizations up to date. - Infectious Disease History:: Denies. - Social history:: Smoking status: Patient/guardian denies using tobacco. ROS: 20:45 Constitutional: Negative for body aches, fatigue, fever, cp 20:45 Eyes: Negative for injury, pain, redness, and discharge, cp 20:45 ENT: Negative for drainage from ear(s), ear pain, sore throat, difficulty swallowing, difficulty handling secretions, 20:45 Cardiovascular: Negative for chest pain, edema, palpitations, 20:45 Respiratory: Negative for cough, shortness of breath, wheezing, 20:45 Abdomen/GI: Negative for abdominal pain, vomiting, diarrhea, constipation, 20:45 : Negative for urinary symptoms, 20:45 Neuro: Positive for headache, Negative for altered mental status, weakness, 20:45 All other systems are negative, Exam: 20:53 Constitutional: The patient appears in no acute distress, alert, awake, cp non-diaphoretic, non-toxic, well developed, well nourished, anxious, 20:53 Head/Face: Normocephalic, atraumatic. cp 20:53 Eyes: Periorbital structures: appear normal, Conjunctiva: normal, no exudate, no injection, Sclera: no appreciated abnormality, Lids and lashes: appear normal, bilaterally, 20:53 ENT: External ear(s): are unremarkable, Nose: is normal, Mouth: Lips: moist, Oral mucosa: moist, Posterior pharynx: Airway: no evidence of obstruction, patent, 20:53 Chest/axilla: Inspection: normal, 20:53 Cardiovascular: Rate: normal, 20:53 Respiratory: the patient does not display signs of respiratory distress, Respirations: normal, no use of accessory muscles, no retractions, labored breathing, is not present, Breath sounds: are clear throughout, no decreased breath sounds, no stridor, no wheezing, 20:53 Abdomen/GI: Exam negative for discomfort, distension, guarding, Inspection: abdomen appears normal, 20:53 Skin: no rash present. Vital Signs: 20:36 BP 122 / 88; Pulse 98; Resp 18; Temp 98.4; Pulse Ox 100% ; Weight 79.38 kg; Height 5 me1 ft. 5 in. ; Pain 8/10; 21:41 BP 126 / 84; Pulse 96; Resp 17; Temp 98.3; Pulse Ox 100% ; me1 20:36 Body Mass Index 29.12 (79.38 kg, 165.1 cm) me1 20:36 Pain Scale: Adult me1 MDM: 20:36 Medical Screening Exam initiated cp 21:18 Data reviewed: vital signs, nurses notes, lab test result(s), and as a result, I will cp discharge patient. 21:18 Differential Diagnosis flu, COVID-19, anxiety. Counseling: I had a detailed discussion cp with the patient and/or guardian regarding the historical points, exam findings, and any diagnostic results supporting the discharge/admit diagnosis, lab results, to return to the emergency department if symptoms worsen or persist or if there are any questions or concerns that arise at home. 12/11 20:41 Order name: COVID-19 Ag + Flu A+B Ag; Complete Time: 21:20 cp 12/11 20:56 Order name: Glucose, Ancillary Testing; Complete Time: 21:20 EDMS 12/11 20:41 Order name: Accucheck Blood Glucose; Complete Time: 20:44 cp Administered Medications: No medications were administered Disposition: 12/12 03:26 Co-signature as Attending Physician, Florentin Rodriguez MD I agree with the assessment and madiha plan of care. Disposition Summary: 12/11/24 21:19 Discharge Ordered Notes: Location: Home cp Problem: new cp Symptoms: are unchanged cp Condition: Stable cp Diagnosis - Person with feared health complaint in whom no diagnosis is made cp Followup: cp - With: Private Physician - When: As needed - Reason: Worsening of condition Discharge Instructions: - Discharge Summary Sheet cp - Use Masks to Slow the Spread of COVID-19 - CDC (12/01/2020) cp - Symptoms of COVID-19 - CDC (07/11/2021) cp - Preventing Influenza, Adult cp Forms: - Medication Reconciliation Form cp - Antibiotic Education cp - Prescription Opioid Use cp - Patient Portal Instructions cp - Leadership Thank You Letter cp Signatures: Dispatcher [employer] EDFlorentin Tineo MD MD cha Page, Corey, PA-C PA-C Kimberli Kenny RN RN me1 Corrections: (The following items were deleted from the chart) 16:39 12/11 20:45 Patient is a 34-year-old male who presents to the emergency department with cp concerns of a slight headache and reports that he just does not feel well. Patient denies fever, denies cough, denies sore throat. Patient reports he was in close contact with family member who tested positive for flu over the past several days. cp
--- NOTE | 2024-12-11 21:19 | ER ---
Nurse's Notes [facility] Name: Theodore Simmons Age: 34 yrs Sex: Male : 1990 Arrival Date: 12/11/2024 Time: 20:07 Bed IW2 Private MD: Diagnosis: Person with feared health complaint in whom no diagnosis is made Presentation: 12/11 20:36 Chief complaint: Patient states: LOWE that started last night, no relief with tylenol. me1 Woke up today feeling like his body was tense and had been sweating in his sleep. States he "doesn't feel right, feels anxious". Daughter has the flu. BGL 81 in triage. Coronavirus screen: Vaccine status: Patient reports receiving the 2nd dose of the covid vaccine. Ebola Screen: No symptoms or risks identified at this time. Initial Sepsis Screen: Does the patient meet any 2 criteria? HR > 90 bpm. Does the patient have a suspected source of infection? No. Patient's initial sepsis screen is negative. Risk Assessment: Do you want to hurt yourself or someone else? Patient reports no desire to harm self or others. Onset of symptoms was December 10, 2024 at 22:00. 20:36 [place] [facility] [place] Acuity: JOE 4 me1 Triage Assessment: 20:39 Headache History: The patient has had previous headaches and this one is similar to me1 previous episodes. General: Appears uncomfortable, well groomed, well developed, well nourished, Behavior is cooperative, appropriate for age, anxious. Pain: Complains of pain in head Pain does not radiate. Pain currently is 8 out of 10 on a pain scale. Quality of pain is described as aching, Pain began 1 day ago. Is continuous. Pain: Also complains of no other associated symptoms. EENT: No signs and/or symptoms were reported regarding the EENT system. Neuro: Level of Consciousness is awake, alert, obeys commands, Oriented to person, place, time, situation, Appropriate for age Reports headache. Cardiovascular: Patient's skin is warm and dry. Respiratory: Airway is patent Respiratory effort is even, unlabored, Respiratory pattern is regular, symmetrical. GI: No signs and/or symptoms were reported involving the gastrointestinal system. : No signs and/or symptoms were reported regarding the genitourinary system. Derm: Skin is intact, is healthy with good turgor, Skin is normal. Musculoskeletal: Reports generalized body aches. Historical: - Allergies: 20:39 No Known Allergies; me1 - PMHx: 20:39 Asthma; diabetes mellitus; me1 - PSHx: 20:39 Appendectomy; Cholecystectomy; me1 - Immunization history:: Adult Immunizations up to date. - Infectious Disease History:: Denies. - Social history:: Smoking status: Patient/guardian denies using tobacco. Screenin:39 [facility] ED Fall Risk Assessment (Adult) History of falling in the last 3 months, me1 including since admission No falls in past 3 months (0 pts) Confusion or Disorientation No (0 pts) Intoxicated or Sedated No (0 pts) Impaired Gait No (0 pts) Mobility Assist Device Used No (0 pt) Altered Elimination No (0 pt) Score/Fall Risk Level 0 - 2 = Low Risk Maintained a safe environment, Provided non-skid footwear, Hourly rounding (assess needs \\T\\ fall precautionary measures) done. Abuse screen: Denies threats or abuse. Nutritional screening: No deficits noted. Tuberculosis screening: No symptoms or risk factors identified. Assessment: 20:39 General:. General: See triage assessment. me1 Vital Signs: 20:36 BP 122 / 88; Pulse 98; Resp 18; Temp 98.4; Pulse Ox 100% ; Weight 79.38 kg; Height 5 me1 ft. 5 in. ; Pain 8/10; 21:41 BP 126 / 84; Pulse 96; Resp 17; Temp 98.3; Pulse Ox 100% ; me1 20:36 Body Mass Index 29.12 (79.38 kg, 165.1 cm) me1 20:36 Pain Scale: Adult me1 ED Course: 20:10 Patient arrived in ED. cj3 20:13 Florentin Francis PA-C is PHCP. cp 20:13 Florentin Rodriguez MD is Attending Physician. cp 20:39 Triage completed. me1 20:39 Arm band placed on Patient placed in waiting room. me1 20:39 Patient has correct armband on for positive identification. Provided Education on: POC. me1 Verbalized understanding.. 20:39 No provider procedures requiring assistance completed. Patient did not have IV access me1 during this emergency room visit. 20:46 COVID swab sent to lab. Flu and/or RSV swab sent to lab. me1 Administered Medications: No medications were administered Medication: 20:39 VIS not applicable for this client. me1 Outcome: 21:19 Discharge ordered by . megha 21:41 Discharged to home ambulatory, me1 21:41 Condition: stable 21:41 Discharge instructions given to patient, Instructed on discharge instructions, follow up and referral plans. Demonstrated understanding of instructions, follow-up care, 21:42 Patient left the ED. me1 Signatures: Florentin Francis PA-C PAKimberli Dove cp RN RN me1 Tiffanie Smith cj3 Corrections: (The following items were deleted from the chart) 20:44 20:36 Chief complaint: Patient states: LOWE that started last night, no relief with me1 tylenol. Woke up today feeling like his body was tense and had been sweating in his sleep. States he "doesn't feel right, feels anxious". Daughter has the flu me1
[2024-12-11 21:45] VITALS: O2SAT 100
[2024-12-11 21:47] VITALS: BP 126/84; TEMP 98.3
== END 2024-12-11 21:42 | disposition home or self-care (01) ==
LOC: ER 20:07
DX: Z71.1 Person with feared health complaint in whom no diagnosis is made (principal); Z11.52 Encounter for screening for COVID-19
CPT/HCPCS: 36415; 82947; 87428; 99283